=== PATIENT | male | born 1930 | race Caucasian/White ===

== ENCOUNTER → 2018-12-23 | Day surgery (SDC) | payer MEDICARE ==
[2018-12-19 10:39] LABS: BASOPHILS % 0.5 % (0.0-1.0); EOSINOPHILS # (AUTO) 0.1 (0.0-0.4); EOSINOPHILS % 0.8 % (0.0-6.0); HEMOGLOBIN 14.6 g/dL (14.0-18.0); LYMPHOCYTES % 34.8 % (18.0-39.1); MEAN CORPUSCULAR HEMOGLOBIN 32.4 pg (28-32); MEAN CORPUSCULAR HGB CONC 34.8 g/dL (31-35); MEAN CORPUSCULAR VOLUME 93.1 fL (81-99); MONOCYTES # (AUTO) 0.8 (0.2-0.8); NEUTROPHILS # (AUTO) 4.7 (2.1-6.9); NEUTROPHILS % 53.9 % (38.7-80.0); PLATELET COUNT 129 x10e3/uL (140-360); RED BLOOD COUNT 4.51 x10e6/uL (4.3-5.7); RED CELL DISTRIBUTION WIDTH 13.4 % (11.7-14.4)
[~2018-12-23] MED LIST: APRISO0.375 GM PO; B-121000 MCG PO; LIALDA1.2 GM PO; LIDOCAINE HCL 2% LOCAL INJ 5 ML SDV VIAL INJ ONE; LISINOPRIL PO; LISINOPRIL10 MG PO; LISINOPRIL40 MG PO; METOPROLOL TART25 MG PO; METOPROLOL TART50 MG PO; NITROSTAT0.4 MG SL; PLAVIX75 MG PO; PREDNISONE5 MG; PREDNISONE5 MG PO; PROBIOTIC ACID1 EACH PO; PROPOFOL IV EMULSION 10 MG/ML 20 ML VIAL ONE; VITAMIN B-125000 MCG SL; VITAMIN D PO; [UNRECOGNIZED DRUG - OTHER] PO
--- OUTSIDE RECORDS SUMMARY | 2018-12-23 05:58 | XMS REPORT | Summary of Care ---
Author Author [facility] Organization [facility] Address Unknown Phone Unavailable Encounter AISHA Gu(OCTAVIA) [id number] Date(s): 04/12/17 - 04/15/17 [facility] [address] [employer] provided by [facility] [employer] [facility] [place] [address]- Discharge Disposition: Home or Self Care Attending Physician: Tre Moore MD Admitting Physician: Tre Moore MD Referring Physician: Tejas Cristobal MD Vital Signs 1 2 3 Most recent to oldest [Reference Range]: 177.8 cm (04/12/17 1:55 PM) Height 97.5 DegF (04/15/17 12:06 PM) 97.9 DegF (04/15/17 7:21 AM) 97.5 DegF (04/15/17 4:32 AM) Temperature Oral [96.4-99.1 DegF] 103/63 mmHg (04/15/17 12:06 PM) 128/69 mmHg (04/15/17 7:21 AM) 130/70 mmHg (04/15/17 4:32 AM) Blood Pressure [90-140/60-90 mmHg] 20 BRMIN (04/15/17 12:06 PM) 18 BRMIN (04/15/17 7:21 AM) 20 BRMIN (04/15/17 4:32 AM) Respiratory Rate [14-20 BRMIN] 80 bpm (04/15/17 12:06 PM) 96 bpm (04/15/17 7:21 AM) 91 bpm (04/15/17 4:32 AM) Peripheral Pulse Rate [60-100 bpm] 72.2 kg (04/12/17 6:47 PM) 72.727 kg (04/12/17 1:55 PM) Weight 23.01 m2 (04/12/17 1:55 PM) Body Mass Index Problem List Condition Effective Dates Status Health Status Informant Acute ulcerative Resolved colitis(Confirmed) Benign 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 2Data migrated from [employer] on 04/23/15. 3Data migrated from [employer] on 04/23/15. 4Data migrated from [employer] on 04/23/15. 5Data migrated from [employer] on 04/23/15. 6remission since 2004 7Data migrated from [employer] on 04/23/15. Allergies, Adverse Reactions, Alerts Substance Reaction Severity Status sulfa drugs1 Active 1Data migrated from [employer] on 06/23/15. Originally documented as SULFA. Medications acetaminophen 500 mg oral tablet 1,000 mg=2 tab, PO, Q6H, # 60 tab, 0 Refill(s) Start Date: 04/15/17 Stop Date: 04/29/17 Status: Ordered aspirin 325 mg, 1 tab, Route: PO, Drug form: TAB, ONCE, Dosing Weight 72.2, kg, Priority : STAT, Start date: 04/12/17 23:29:00 CDT, Stop date: 04/12/17 23:29:00 CDT Notes: Take with food. Start Date: 04/12/17 Stop Date: 04/13/17 Status: Completed atorvastatin 80 mg, 1 tab, Route: PO, Drug form: TAB, Bedtime, Dosing Weight 72.2, kg, Start date: 04/14/17 21:00:00 CDT, Duration: 30 day, Stop date: 05/13/17 21:00:00 CDT Notes: Same as Lipitor Start Date: 04/14/17 Stop Date: 04/15/17 Status: Discontinued atorvastatin 80 mg oral tablet 80 mg=1 tab, PO, Bedtime, # 30 tab, 0 Refill(s) Start Date: 04/15/17 Status: Ordered Dextrose 50% Syringe 12.5 gm, 25 mL, Route: IVP, Drug Form: INJ, Dosing Weight 72.2, kg, PRN, PRN Abn ormal Lab Result, Start date: 04/12/17 20:47:00 CDT, Duration: 30 day, Stop date : 05/12/17 20:46:00 CDT, For FSBG 40 mg/dL - 60 mg/dL Start Date: 04/12/17 Stop Date: 04/15/17 Status: Discontinued Dextrose 50% Syringe 25 gm, 50 mL, Route: IVP, Drug Form: INJ, Dosing Weight 72.2, kg, PRN, PRN Abnor mal Lab Result, Start date: 04/12/17 20:47:00 CDT, Duration: 30 day, Stop date: 05/12/17 20:46:00 CDT, For FSBG < 40 mg/dL Start Date: 04/12/17 Stop Date: 04/15/17 Status: Discontinued docusate sodium 100 mg oral capsule 100 mg, 1 cap, Route: PO, Drug form: CAP, Q12H, Dosing Weight 72.2, kg, Start da te: 04/13/17 9:00:00 CDT, Duration: 30 day, Stop date: 05/12/17 21:00:00 CDT Notes: (Same as: Colace) (Do Not Crush) Start Date: 04/13/17 Stop Date: 04/15/17 Status: Discontinued docusate sodium 100 mg oral capsule 100 mg=1 cap, PO, Q12H, # 30 cap, 0 Refill(s) Start Date: 04/15/17 Status: Ordered Insulin regular 12 unit, 0.12 mL, Route: SUB-Q, Drug form: SOLN, PRN, Dosing Weight 72.2, kg, UT N Abnormal Lab Result, Start date: 04/12/17 20:47:00 CDT, Duration: 30 day, Stop date: 05/12/17 20:46:00 CDT, For FSBG >=200 mg/dL Notes: (Same as: Humulin R) Roll in palms of hands gently; Do not shake vigorou sly. "single patient use only"(Restricted to patients requiring a dose > 60 units)WASTE: F/P - Black; E - Municipal Trash Bin Stable for 28 days at room temperatureExpires in days from Date Start Date: 04/12/17 Stop Date: 04/15/17 Status: Discontinued Insulin regular 5 unit, 0.05 mL, Route: SUB-Q, Drug form: SOLN, PRN, Dosing Weight 72.2, kg, PRN Abnormal Lab Result, Start date: 04/12/17 20:47:00 CDT, Duration: 30 day, Stop date: 05/12/17 20:46:00 CDT, For FSBG 150 mg/dL - 174 mg/dL Notes: (Same as: Humulin R) Roll in palms of hands gently; Do not shake vigorou sly. "single patient use only"(Restricted to patients requiring a dose > 60 units)WASTE: F/P - Black; E - Municipal Trash Bin Stable for 28 days at room temperatureExpires in days from Date Start Date: 04/12/17 Stop Date: 04/15/17 Status: Discontinued Insulin regular 8 unit, 0.08 mL, Route: SUB-Q, Drug form: SOLN, PRN, Dosing Weight 72.2, kg, PRN Abnormal Lab Result, Start date: 04/12/17 20:47:00 CDT, Duration: 30 day, Stop date: 05/12/17 20:46:00 CDT, For FSBG 175 mg/dL - 199 mg/dL Notes: (Same as: Humulin R) Roll in palms of hands gently; Do not shake vigorou sly. "single patient use only"(Restricted to patients requiring a dose > 60 units)WASTE: F/P - Black; E - Municipal Trash Bin Stable for 28 days at room temperatureExpires in days from Date Start Date: 04/12/17 Stop Date: 04/15/17 Status: Discontinued mesalamine 375 mg, Route: PO, QAM, Dosing Weight 72.2, kg, Start date: 04/13/17 9:00:00 CDT , Duration: 30 day, Stop date: 05/12/17 9:00:00 CDT Start Date: 04/13/17 Stop Date: 04/13/17 Status: Discontinued mesalamine 400 mg, 1 cap, Route: PO, Drug form: DRC, QAM, Start date: 04/13/17 9:00:00 CDT, Duration: 30 day, Stop date: 05/12/17 9:00:00 CDT Notes: (Same as: Delzicol) Start Date: 04/13/17 Stop Date: 04/15/17 Status: Discontinued metoprolol tartrate 25 mg, 1 tab, Route: PO, Drug form: TAB, Q12H, Dosing Weight 72.2, kg, Start stephenie e: 04/12/17 22:16:00 CDT, Duration: 30 day, Stop date: 05/12/17 21:00:00 CDT Notes: (Same as: Lopressor) Start Date: 04/12/17 Stop Date: 04/15/17 Status: Discontinued MiraLax 17 gm, 1 pkt, Route: PO, Drug form: PWDR, Daily, Dosing Weight 72.2, kg, Start d ate: 04/13/17 9:00:00 CDT, Duration: 30 day, Stop date: 05/12/17 9:00:00 CDT Notes: Dissolve in 8 oz of water or juice.(Same as: Miralax) Start Date: 04/13/17 Stop Date: 04/15/17 Status: Discontinued nitroglycerin 0.4 mg, 1 tab, Route: SL, Drug form: TAB, ONCE, Dosing Weight 72.2, kg, Start da te: 04/12/17 22:16:00 CDT, Stop date: 04/12/17 22:16:00 CDT Notes: (Same as:Nitroquick, Nitrostat)"Do Not Crush" Sublingual tablet Start Date: 04/12/17 Stop Date: 04/13/17 Status: Completed oxyCODONE 5 mg oral tablet 5 mg, 1 tab, Route: PO, Drug form: TAB, Q4H, Dosing Weight 72.2, kg, PRN Pain Sc ore 4-6, Start date: 04/12/17 20:46:00 CDT, Duration: 30 day, Stop date: 7 20:45:00 CDT Notes: (Same as: Roxicodone) Start Date: 04/12/17 Stop Date: 04/15/17 Status: Discontinued PHOS-NaK 1 pkt, Route: PO, Drug Form: PDR/REC, Dosing Weight 72.2, kg, ONCE, Start date: 04/15/17 10:12:00 CDT, Stop date: 04/15/17 10:12:00 CDT Notes: (Same as: Phos-NaK) Each 1.5 gm pkt has 250mg phosphorous. Mix w/2.5oz w ater and stir. Start Date: 04/15/17 Stop Date: 04/15/17 Status: Completed Plavix 75 mg, 1 tab, Route: PO, Drug form: TAB, Daily, Dosing Weight 72.2, kg, Start da te: 04/13/17 10:06:00 CDT, Duration: 30 day, Stop date: 05/13/17 9:00:00 CDT Notes: (Same As: Plavix) Start Date: 04/13/17 Stop Date: 04/15/17 Status: Discontinued polyethylene glycol 3350 oral powder for reconstitution 17 gm, PO, Daily, PRN Constipation, # 255 gm, 0 Refill(s) Start Date: 04/15/17 Stop Date: 04/22/17 Status: Ordered senna 8.6 mg oral tablet 17.2 mg, 2 tab, Route: PO, Drug Form: TAB, Dosing Weight 72.2, kg, Bedtime, Star t date: 04/13/17 21:00:00 CDT, Duration: 30 day, Stop date: 05/12/17 21:00:00 CD T Notes: (Same as: Senokot) Start Date: 04/13/17 Stop Date: 04/15/17 Status: Discontinued tramadol 50 mg oral tablet 50 mg, 1 tab, Route: PO, Drug form: TAB, Q6H, Dosing Weight 72.2, kg, PRN Pain S core 1-3, Start date: 04/13/17 0:27:00 CDT, Duration: 30 day, Stop date: 7 0:26:00 CDT Notes: Not to exceed 400mg/day. (Same As: Ultram) Start Date: 04/13/17 Stop Date: 04/15/17 Status: Discontinued tramadol 50 mg oral tablet 50 mg=1 tab, PO, Q6H, PRN Pain Score 1-5, # 24 tab, 0 Refill(s) Start Date: 04/15/17 Stop Date: 04/22/17 Status: Ordered Tylenol 1,000 mg, 2 tab, Route: PO, Drug form: TAB, Q6H, Dosing Weight 72.2, kg, Start d ate: 04/12/17 20:46:00 CDT, Duration: 30 day, Stop date: 05/12/17 18:00:00 CDT Notes: Max acetaminophen 4000 mg/day (4 gm/day). (Same as: Tylenol Extra Streng th) Start Date: 04/12/17 Stop Date: 04/15/17 Status: Discontinued Zofran 4 mg, 1 tab, Route: SL, Drug form: TABDIS, ONCE, Dosing Weight 72.2, kg, Start d ate: 04/15/17 4:42:00 CDT, Stop date: 04/15/17 4:42:00 CDT Notes: (Same as: Zofran ODT) Start Date: 04/15/17 Stop Date: 04/15/17 Status: Completed Zofran 4 mg, 1 tab, Route: PO, Drug form: TAB, ONCE, Dosing Weight 72.2, kg, Start date : 04/13/17 18:41:00 CDT, Stop date: 04/13/17 18:41:00 CDT Notes: (Same as: Zofran) Start Date: 04/13/17 Stop Date: 04/13/17 Status: Completed Zofran ODT 4 mg oral tablet, disintegrating 4 mg=1 tab, PO, Q8H, PRN Vomiting, Dissolve tab under tongue, X 1 day, # 3 tab, 0 Refill(s) Start Date: 04/15/17 Stop Date: 04/16/17 Status: Completed Results BLOOD BANK RESULTS 1 2 3 Most recent to oldest [Reference Range]: B NEG *Unknown* (04/12/17 2:15 PM) ABO/Rh Negative (04/12/17 2:15 PM) Antibody Scrn Product available (04/12/17 2:22 PM) FFP product Product available (04/12/17 2:14 PM) RBC product ELECTROLYTES 1 2 3 Most recent to oldest [Reference Range]: 137 mEq/L (04/15/17 6:18 AM) 138 mEq/L (04/14/17 12:32 AM) 140 mEq/L (04/13/17 4:29 AM) Sodium Lvl [135-145 mEq/L] 4.2 mEq/L (04/15/17 6:18 AM) 4.5 mEq/L (04/14/17 12:32 AM) 4.8 mEq/L (04/13/17 4:29 AM) Potassium Lvl [3.5-5.1 mEq/L] 104 mEq/L (04/15/17 6:18 AM) 106 mEq/L (04/14/17 12:32 AM) 108 mEq/L (04/13/17 4:29 AM) Chloride Lvl [95-109 mEq/L] 22 mEq/L *LOW* (04/15/17 6:18 AM) 23 mEq/L *LOW* (04/14/17 12:32 AM) 21 mEq/L *LOW* (04/13/17 4:29 AM) CO2 [24-32 mEq/L] 15.2 mEq/L (04/15/17 6:18 AM) 13.5 mEq/L (04/14/17 12:32 AM) 15.8 mEq/L (04/13/17 4:29 AM) AGAP [10.0-20.0 mEq/L] CHEM PANEL 1 2 3 Most recent to oldest [Reference Range]: 0.95 mg/dL (04/15/17 6:18 AM) 0.98 mg/dL (04/14/17 12:32 AM) 1.10 mg/dL (04/13/17 4:29 AM) Creatinine Lvl [0.50-1.40 mg/dL] 72 mL/min/1.73m2 1 *NA* (04/15/17 6:18 AM) 70 mL/min/1.73m2 2 *NA* (04/14/17 12:32 AM) 60 mL/min/1.73m2 3 *NA* (04/13/17 4:29 AM) eGFR 18 mg/dL (04/15/17 6:18 AM) 17 mg/dL (04/14/17 12:32 AM) 20 mg/dL (04/13/17 4:29 AM) BUN [7-22 mg/dL] 110 mg/dL *HI* (04/15/17 6:18 AM) 106 mg/dL *HI* (04/14/17 12:32 AM) 91 mg/dL (04/13/17 4:29 AM) Glucose Lvl [70-99 mg/dL] 7.7 mg/dL *LOW* (04/15/17 6:18 AM) 7.9 mg/dL *LOW* (04/14/17 12:32 AM) 8.2 mg/dL *LOW* (04/13/17 4:29 AM) Calcium Lvl [8.5-10.5 mg/dL] 2.8 mg/dL (04/15/17 6:18 AM) 3.3 mg/dL (04/14/17 12:32 AM) 3.9 mg/dL (04/13/17 4:29 AM) Phosphorus [2.5-4.5 mg/dL] 2.3 mg/dL (04/15/17 6:18 AM) 2.3 mg/dL (04/14/17 12:32 AM) 2.4 mg/dL (04/13/17 4:29 AM) Magnesium Lvl [1.8-2.4 mg/dL] 1.6 mMol/L (04/12/17 9:47 PM) Lactic Acid Lvl [0.5-2.2 mMol/L] 1Result Comment: The eGFR is calculated using the CKD-EPI formula. In most young, healthy individuals the eGFR will be >90 mL/min/1.73m2. The eGFR declines with age. An eGFR of 60-89 may be normal in some populations, particularly the elderly, for whom the CKD-EPI formula has not been extensively validated. Use of the eGFR is not recommended in the following populations: Individuals with unstable creatinine concentrations, including patients and those with serious co-morbid conditions. Patients with extremes in muscle mass or diet. The data above are obtained from the National Kidney Disease Education Program ( NKDEP) which additionally recommends that when the eGFR is used in patients with extremes of body mass index for purposes of drug dosing, the eGFR should be mul tiplied by the estimated BMI. 2Result Comment: The eGFR is calculated using the CKD-EPI formula. In most young, healthy individuals the eGFR will be >90 mL/min/1.73m2. The eGFR declines with age. An eGFR of 60-89 may be normal in some populations, particularly the elderly, for whom the CKD-EPI formula has not been extensively validated. Use of the eGFR is not recommended in the following populations: Individuals with unstable creatinine concentrations, including patients and those with serious co-morbid conditions. Patients with extremes in muscle mass or diet. The data above are obtained from the National Kidney Disease Education Program ( NKDEP) which additionally recommends that when the eGFR is used in patients with extremes of body mass index for purposes of drug dosing, the eGFR should be mul tiplied by the estimated BMI. 3Result Comment: The eGFR is calculated using the CKD-EPI formula. In most young, healthy individuals the eGFR will be >90 mL/min/1.73m2. The eGFR declines with age. An eGFR of 60-89 may be normal in some populations, particularly the elderly, for whom the CKD-EPI formula has not been extensively validated. Use of the eGFR is not recommended in the following populations: Individuals with unstable creatinine concentrations, including patients and those with serious co-morbid conditions. Patients with extremes in muscle mass or diet. The data above are obtained from the National Kidney Disease Education Program ( NKDEP) which additionally recommends that when the eGFR is used in patients with extremes of body mass index for purposes of drug dosing, the eGFR should be mul tiplied by the estimated BMI. CARDIAC ENZYMES 1 2 3 Most recent to oldest [Reference Range]: 200 unit/L *HI* (04/12/17 10:04 PM) 253 unit/L *HI* (04/12/17 2:15 PM) Total CK [12-191 unit/L] 34.4 ng/mL *HI* (04/12/17 10:04 PM) 62.5 ng/mL *HI* (04/12/17 2:15 PM) CK MB [0.5-3.6 ng/mL] 17.2 *HI* (04/12/17 10:04 PM) 24.7 *HI* (04/12/17 2:15 PM) CK MB Index [0.0-2.5] 0.611 ng/mL 1 *CRIT* (04/12/17 10:04 PM) Troponin-T [0.000-0.100 ng/mL] 7.41 ng/mL 2 *CRIT* (04/12/17 2:15 PM) Troponin-I [0.00-0.40 ng/mL] 1Result Comment: Critical Result(s) called to Ifeanyi porter at 04/13/2017 00:20 byBP. Read back OK. 2Result Comment: Critical Result(s) called to chandni vivas at 04/12/2017 15:01 by nk. Read back OK. MYOGLOBIN 1 2 3 Most recent to oldest [Reference Range]: 139 ng/mL *HI* (04/12/17 10:04 PM) Myoglobin [25-72 ng/mL] IMMUNOLOGY 1 2 3 Most recent to oldest [Reference Range]: 8.8 mg/dL *LOW* (04/15/17 6:18 AM) Prealbumin [18.0-45.0 mg/dL] 103.0 mg/L *HI* (04/15/17 6:18 AM) CRP [<=2.9 mg/L] HEMATOLOGY 1 2 3 Most recent to oldest [Reference Range]: 8.0 K/CMM (04/15/17 6:18 AM) 6.8 K/CMM (04/14/17 12:32 AM) 6.3 K/CMM (04/13/17 4:29 AM) WBC [3.7-10.4 K/CMM] 3.86 M/CMM *LOW* (04/15/17 6:18 AM) 3.61 M/CMM *LOW* (04/14/17 12:32 AM) 3.25 M/CMM *LOW* (04/13/17 4:29 AM) RBC [4.70-6.10 M/CMM] 11.2 g/dL *LOW* (04/15/17 6:18 AM) 10.5 g/dL *LOW* (04/14/17 12:32 AM) 9.3 g/dL *LOW* (04/13/17 4:29 AM) Hgb [14.0-18.0 g/dL] 34.1 % *LOW* (04/15/17 6:18 AM) 31.5 % *LOW* (04/14/17 12:32 AM) 28.2 % *LOW* (04/13/17 4:29 AM) Hct [42.0-54.0 %] 88.3 fL (04/15/17 6:18 AM) 87.4 fL (04/14/17 12:32 AM) 86.8 fL (04/13/17 4:29 AM) MCV [80.0-94.0 fL] 28.9 pg (04/15/17 6:18 AM) 29.0 pg (04/14/17 12:32 AM) 28.7 pg (04/13/17 4:29 AM) MCH [27.0-31.0 pg] 32.8 g/dL (04/15/17 6:18 AM) 33.1 g/dL (04/14/17 12:32 AM) 33.0 g/dL (04/13/17 4:29 AM) MCHC [32.0-36.0 g/dL] 16.7 % *HI* (04/15/17 6:18 AM) 15.8 % *HI* (04/14/17 12:32 AM) 15.8 % *HI* (04/13/17 4:29 AM) RDW [11.5-14.5 %] 121 K/CMM *LOW* (04/15/17 6:18 AM) 106 K/CMM *LOW* (04/14/17 12:32 AM) 101 K/CMM *LOW* (04/13/17 4:29 AM) Platelet [133-450 K/CMM] 8.6 fL (04/15/17 6:18 AM) 8.9 fL (04/14/17 12:32 AM) 8.9 fL (04/13/17 4:29 AM) MPV [7.4-10.4 fL] 79.6 % *HI* (04/15/17 6:18 AM) 70.5 % (04/14/17 12:32 AM) 65.6 % (04/13/17 4:29 AM) Segs [45.0-75.0 %] 12.2 % *LOW* (04/15/17 6:18 AM) 20.5 % (04/14/17 12:32 AM) 22.3 % (04/13/17 4:29 AM) Lymphocytes [20.0-40.0 %] 7.7 % (04/15/17 6:18 AM) 8.6 % (04/14/17 12:32 AM) 11.2 % (04/13/17 4:29 AM) Monocytes [2.0-12.0 %] 0.2 % (04/15/17 6:18 AM) 0.1 % (04/14/17 12:32 AM) 0.1 % (04/13/17 4:29 AM) Eosinophils [0.0-4.0 %] 0.3 % (04/15/17 6:18 AM) 0.3 % (04/14/17 12:32 AM) 0.8 % (04/13/17 4:29 AM) Basophils [0.0-1.0 %] 6.4 K/CMM (04/15/17 6:18 AM) 4.8 K/CMM (04/14/17 12:32 AM) 4.1 K/CMM (04/13/17 4:29 AM) Segs-Bands # [1.5-8.1 K/CMM] 1.0 K/CMM (04/15/17 6:18 AM) 1.4 K/CMM (04/14/17 12:32 AM) 1.4 K/CMM (04/13/17 4:29 AM) Lymphocytes # [1.0-5.5 K/CMM] 0.6 K/CMM (04/15/17 6:18 AM) 0.6 K/CMM (04/14/17 12:32 AM) 0.7 K/CMM (04/13/17 4:29 AM) Monocytes # [0.0-0.8 K/CMM] 0.1 K/CMM (04/12/17 9:47 PM) Eosinophils # [0.0-0.5 K/CMM] 0.1 K/CMM (04/13/17 4:29 AM) 0.2 K/CMM (04/12/17 9:47 PM) Basophils # [0.0-0.2 K/CMM] 89 seconds (04/12/17 2:15 PM) ACT (TEG) Rapid [86-118 seconds] 0.3 minutes *NA* (04/12/17 2:15 PM) Split Point Rapid 0.4 minutes (04/12/17 2:15 PM) R-time Rapid [0.4-0.7 minutes] 1.2 minutes (04/12/17 2:15 PM) K-time Rapid [0.6-2.3 minutes] 77 degrees (04/12/17 2:15 PM) Angle Rapid [64-80 degrees] 66 mm (04/12/17 2:15 PM) Max Amplitude Rapid [52-71 mm] 9.9 K d/sc (04/12/17 2:15 PM) G-value Rapid [5.0-11.6 K d/sc] 0.0 % (04/12/17 2:15 PM) Estimated % Lysis Rapid [0.0-7.5 %] BACTERIAL - SEROLOGY 1 2 3 Most recent to oldest [Reference Range]: Negative (04/12/17 10:04 PM) MRSA by PCR Immunizations Given and Recorded Vaccine Date Status Refusal Reason Hx influenza vaccine-unspecified1 09/10/13 Given influenza virus vaccine, inactivated2 09/10/13 Given 1Result Comment: done. Migrated from OBS ; Data migrated from [employer] on 12/27/2015. 2Result Comment: fluzone (>3 yrs.) [[id number]]. Migrated from OBS ; Data migrated from [employer] on 12/27/2015. Procedures Procedure Date Related Diagnosis Body Site Appendectomy Cholecystectomy Social History Social History Type Response Smoking Status Former smoker; Ready to change: No; Concerns about tobacco use in household: No; Exposure to Tobacco Smoke None; Cigarette Smoking Last 365 Days No; Reg Smoking Cessation Counseling No Assessment and Plan Extracted from: Title: Cardiology Progress note Author: Hasmukh Thomas MD Date: 04/15/17 Impression and Plan 86-year-old male with PMH hx of UC, CAD s/p PCI with 5 stents to LAD and ramus, hx of Hairy cell leukemia (currently in remission) presented to OSH with chest pain on 04/12/2017. Found to have NSTEMI in setting of acute blood loss from spleenic rupture. He was loaded with aspirin 325 on 04/12, and was taken to IR for splenic embolization. Today is day 3 after his procedure, Hgb stable at this time. Cardiac enzymes trending down. Problem list # Splenic laceration s/p lower lobe embolization # NSTEMI # Anemia from Acute blood loss # CAD s/p 5 PCI # Hairy cell leukemia , in remission Recommendations - Continue Clopidogrel 75 mg daily and atorvastatin 80 mg daily - Due to his recent splenic laceration, would hold on any further anticoagulation - Patient will follow up with outpatient cardiogist (Dr Crsitobal Brooke) phone number [phone]. We have already called his sulfonation equipment operator, and he is willing to see this patient later this week if patient being discharged. We will sign off now. This patient was seen with Dr Gerri Jaramillo (attending). Please page with any questions. Extracted from: Title: Cardiology Consult Note Author: Katarina Reeder MD Date: 04/12/17 Impression and Plan Mr. Bennett is an 86-year-old male with PMH hx of UC, recent clinical diverticulitis, CAD s/p PCI with 5 stents to LAD and ramus, hx of Hairy cell leukemia (currently in remission) presented to OSH with chest pain which started about 3 days ago and woke him up this morning. Found to have NSTEMI in setting of acute blood loss from possible spleenic rupture. Cardiology was consulted for the NSTEMI. #NTSTEMI most likley from Demand ischemia due to acute blood loss from hemorraghic spleen rupture but ACS cannot be r/o at this point. - Previous history of CAD with stents x 5 to alex and LAD - EKG showing NSR without ST elevations, depressions or TWI - TTE at beside showing WMA, TTE showing reduced EF (40-45%) - Hgb dropped from 13 --> 7.3, troponins elevated from 3.3 --> 7.31. CT abd showing acute spleen rupture with extravasation of blood. - Loaded with Plavix, ASA Recommendations - Will hold off heparin drip for now due to acute bleeding in the spleen. - Patient needs to have his hemoglobin stablized with transfusions and agree with the plan to have IR emobolization of the spleen, however, if IR unable to stop bleeding or unsuccessful, Emergent surgery to remove the spleen would still remain as an appropriate option. - Continue trending troponins, EKG Q4H. - Will continue to follow and will consider cardiac work up once patient is more stable. Katarina Reeder Internal Medicine PGY1 Case discussed with faculty. Dr. Corona Attending note: I have seen and examined patient personally. Case discussed with housestaff. Agree with above plans. Time spent with patient > 30 min with half of the time spent in coordinating patient's care. Echo reviewed personally- echo performed at outside hospital yesterday and echo at bedside. LVEF 40-45%, hypokinesis in the anteroseptal wall and anterior wall, normal RV size and function. Impression: 1. NSTEMI- known CAD with prior PTCA to LAD and ramus. Presumed new wall motion abnormalities noted on current echo. This may also be exacerbated by acute blood loss related to splenic laceration 2. Splenic laceration with acute blood loss -Agree with plans for transfusion and IR procedure for splenic embolization. Should IR procedure fail to control bleeding, pt should proceed with surgical intervention for splenectomy as benefits outweigh risks. We will follow along, and when appropriate, will proceed with further cardiac w/u Above discussed with pt, family, surgical team and ER team. Danni Corona MD Extracted from: Title: Trauma H&P Author: Isidro Guerra MD Date: 04/12/17 [facility] Consultation Date: 04/12/2017 Consulting Trauma Surgeon: Dr. Tejas Hernandez Referring Physician: Dr. Uli Isbell Time of Initial Patient Assessment: 14:00 Chief Complaint: "My chest hurts" History of Present Illness: This is an 86-year-old male who presented to the emergency department today at [facility] with complaints of chest pain. He was worked up and found to have non-ST elevated AL with troponin elevation. He presented hypotensive with a systolic blood pressure 102/65, heart rate in the low 100s. He was given a mild fluid bolus of 500 by the ED physician and responded to that with a BP 102/60s, heart rate is 98. The patient also has a past medical history of ulcerative colitis and they are concerned that he had some right lower quadrant pain. This prompted a CT scan. CT scan showed an enlarged spleen with a grade IV splenic injury with hemoperitoneum. Transferre to [facility] for HLOC. Past Medical History: Ulcerative colitis Diverticulitis Hairy cell leukemia in remission since 2004 Past Surgical History: 1974 open cholecystectomy and appendectomy 09/2002 RHC with 2 stents placed 05/2003 RHC with another 2 stents placed RLE angioplasty Home Medications: Plavix 75 mg QAM Metoprolol 25 mg QAM Mesalamine 4 375 mg ; 4 gm/60 mL as needed Nitrostat 0.4 mg Pearls-Probiotic QHS 76432 B12 sublingual Gabapentin 300 mg BID Tyelnol 650 mg TID Levaquin 500 mg day 3 of 10 for diverticulitis flare Allergies: Sulfa drugs Social History: Negative x3. 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 Family History: Non-contributory Review of Systems: Constitutional symptoms: Denies fever, weight loss, night sweats, fatigue HEENT: Denies ear pain, hearing loss, nasal drainage, sore throat, tooth pain, hoarseness, eye redness, visual changes Cardiovascular: Denies murmurs Respiratory: Denies, cough, wheezing, apnea, cyanosis, difficulty breathing Gastrointestinal: Denies decreased feeding/appetite, vomiting, diarrhea, constipation, blood in the stools, abdominal pain Genitourinary: Denies dysuria, hematuria, decreased or absent urine output Musculoskeletal: Denies joint swelling, tenderness, weakness Skin: Denies rashes, dryness, itching Neurological: Denies seizures, loss of consciousness, numbness, tingling, weakness Psychiatric: Denies mood changes, sleep problems Endocrine: Denies changes in body habitus, weight gain Hematologic / lymphatic: Denies bleeding, jaundice, swollen gland Physical Examination: Neuro: AOx3, not agitated Eye: PERRL, EOMI, normal conjunctiva HENT: normocephalic, ears normal, nasal and oral mucosa intact Neck: supple, non-tender Chest: non-labored breathing, symmetric chest rise, no crepitus Cardiac: RRR, no murmurs Abdomen: non-distended, soft, non-tender Pelvis: stable to lateral compression /Perineum: normal genitalia, no wounds to perineum Back: Normal ROM. No swelling. Rectal: Warm, Intact. LUE: 5/5 motor, sensory intact, 2+ radial RUE: 5/5 motor, sensory intact, 2+ radial LLE: 5/5 motor, sensory intact, 2+ femoral, 2+ DP/PT RLE: 5/5 motor, sensory intact, 2+ femoral, 2+ DP/PT Skin: grossly intact Labs: Labs (Last four charted values) WBC 4.7(APRIL 12) Hgb L 8.2(APRIL 12) Hct L 24.5(APRIL 12) Plt L 104(APRIL 12) Radiology: CXR: IMPRESSION: 1. There is mild left basilar atelectasis and possibly minimal left pleural effusion. The lungs are otherwise clear. Note is made of a small calcified granuloma in the right upper lobe. 2. The heart is normal in size. There is no evidence of failure. 3. The regional skeleton is unremarkable. CT Abdomen/Pelvis: IMPRESSION: 1. Splenic injury, grade 4 with hemoperitoneum and hemorrhage extending to the lower pelvis. Blush of contrast consistent with active bleeding. 2. Bilateral lower lobe infiltrates and effusions. 3. Cardiomegaly and coronary artery calcifications. 4. Multiple low-density hepatic lesions presumably cysts. This can be confirmed with a nonemergent ultrasound. 5. Small hiatal hernia. 6. Extensive sigmoid diverticulosis. Assessment and Plan: This is an 86-year-old male who presented to the emergency department today at [facility] [place] with complaints of chest pain. He was worked up and found to have non-ST elevated AL with troponin elevation. He presented hypotensive with a systolic blood pressure 102/65, heart rate in the low 100s. He was given a mild fluid bolus of 500 by the ED physician and responded to that with a BP 102/60s, heart rate is 98. The patient also has a past medical history of ulcerative colitis and they are concerned that he had some right lower quadrant pain. This prompted a CT scan. CT scan showed an enlarged spleen with a grade IV splenic injury with hemoperitoneum. Transferre to [facility] for HLOC. Upon arrival, GCS 15, SBP 100, HR 116. Primary survey intact. Secondary showed no abdominal tenderness. Labs: Hgb 8.2 (13.1 three weeks ago), ACT 89, mA 66, lysis 0.0%. EKG showed no ST elevation, troponins elevated. Cardiology called immediately, performed bedside echo. NSTEMI vs demand ischemia: presumed new wall motion on bedside echo; OK for IR embolization, will continue to follow and continue work-up when appropriate. Injuries and plan as follows: Injuries:Consults/Plans: 1. Grade IV Splenic Laceration with1. To IR for embolization; angio showed lower pole pseudoaneursm and extrav; s/p embolization extravof lower pole with coils and Gelform 2. Hiatal hernia2. F/u outpatient 3. Hepatic hypodensities3. Dedicated U/S vs CT nonemergent Additionally, Cardiology consulted STAT for NSTEMI vs demand ischemia: presumed new wall motion on bedside echo; OK for IR embolization, will continue to follow and continue work-up when appropriate Admit to STICU Tertiary in AM TRAUMA ATTENDING ADDENDUM I have seen and examined patient with provider and concur with their findings and plan as noted in numbered list below. 1. Grade IV Splenic Laceration: To IR for embolization. Admit to STICU for hemodynamic monitoring. 2. Type II NSTEMI vs Demand Ischemia: Cardiology states no indication for catheterization, will continue hemodynamic monitoring. 3. Code Status: Extensive discussion regarding patients wishes were had at the bedside with Dr. Moore, myself, and his family. They agreed to review the status and come up with a plan as we go forward. He is willing to go forward with the embolization and would need to further consider if he were to fail and require operative intervention. DOS 04/12/2017 Tejas Hernandez III, MD MSO [id number]
--- OUTSIDE RECORDS SUMMARY | 2018-12-23 05:58 | XMS REPORT | Continuity of Care Document ---
Author Author [facility] Interface Address Unknown Phone Unavailable Problems Problem Status Onset Date Classification Date Reported Comments Source SPLENIC RUPTURE, NSTEMI Active 04/12/2017 [facility] CHEST PAIN Active 04/12/2017 [facility] NSTEMI Active 04/12/2017 [facility] Discharge Diagnosis: Strep pharyngitis 03/23/2017 03/26/2017 [facility] Discharge Diagnosis: Sinusitis 03/23/2017 03/26/2017 [facility] FEVER Active 03/23/2017 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 [facility] Benign prostatic hyperplasia<sup>1</sup> Active 09/10/2013 Problem 04/18/2017 Data migrated from [employer] on 04/23/15. [facility] Ulcerative colitis<sup>7</sup> Active 09/10/2013 Problem 04/18/2017 Data migrated from [employer] on 04/23/15. [facility] Acute ulcerative colitis Resolved Problem 04/18/2017 [facility] Coronary arteriosclerosis<sup>2</sup> Active Problem 04/18/2017 Data migrated from [employer] on 04/23/15. [facility] Diverticulitis Resolved Problem 04/18/2017 [facility] Essential hypertension<sup>4</sup> Active Problem 04/18/2017 Data migrated from [employer] on 04/23/15. [facility] Hyperlipidemia<sup>5</sup> Active Problem 04/18/2017 Data migrated from [employer] on 04/23/15. 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 OTHER INJURY OF SPLEEN, INITIAL ENCOUNTE Active [facility] NON-ST ELEVATION (NSTEMI) MYOCARDIAL INF Active [facility] Medications Medication Details Route Status Patient Instructions Ordering Provider Order Date Source Ondansetron 4 MG Disintegrating Tablet [Zofran] 4 mg=1 tab, PO, Q8H, PRN Vomiting, Dissolve tab under tongue, X 1 day, # 3 tab, 0 Refill(s) No Longer Active 04/15/2017 [facility] tramadol hydrochloride 50 MG Oral Tablet 50 mg=1 tab, PO, Q6H, PRN Pain Score 1-5, # 24 tab, 0 Refill(s) Active 04/15/2017 [facility] polyethylene glycol 3350 oral powder for reconstitution 17 gm, PO, Daily, PRN Constipation, # 255 gm, 0 Refill(s) Active 04/15/2017 [facility] Docusate Sodium 100 MG Oral Capsule 100 mg=1 cap, PO, Q12H, # 30 cap, 0 Refill(s) Active 04/15/2017 [facility] atorvastatin 80 mg oral tablet 80 mg=1 tab, PO, Bedtime, # 30 tab, 0 Refill(s) Active 04/15/2017 [facility] acetaminophen 500 mg oral tablet 1,000 mg=2 tab, PO, Q6H, # 60 tab, 0 Refill(s) Active 04/15/2017 [facility] PHOS-NaK 1 pkt, Route: PO, Drug Form: PDR/REC, Dosing Weight 72.2, kg, ONCE, Start date: 04/15/17 10:12:00 CDT, Stop date: 04/15/17 10:12:00 CDTNotes: (Same as: Phos-NaK) Each 1.5 gm pkt has 250mg phosphorous. Mix w/2.5oz water and stir. Inactive 04/15/2017 [facility] Zofran 4 mg, 1 tab, Route: SL, Drug form: TABDIS, ONCE, Dosing Weight 72.2, kg, Start date: 04/15/17 4:42:00 CDT, Stop date: 04/15/17 4:42:00 CDTNotes: (Same as: Zofran ODT) Inactive 04/15/2017 [facility] atorvastatin 80 mg, 1 tab, Route: PO, Drug form: TAB, Bedtime, Dosing Weight 72.2, kg, Start date: 04/14/17 21:00:00 CDT, Duration: 30 day, Stop date: 05/13/17 21:00:00 CDTNotes: Same as Lipitor No Longer Active 04/15/2017 [facility] senna 8.6 mg oral tablet 17.2 mg, 2 tab, Route: PO, Drug Form: TAB, Dosing Weight 72.2, kg, Bedtime, Start date: 04/13/17 21:00:00 CDT, Duration: 30 day, Stop date: 05/12/17 21:00:00 CDTNotes: (Same as: Senokot) No Longer Active 04/14/2017 [facility] Zofran 4 mg, 1 tab, Route: PO, Drug form: TAB, ONCE, Dosing Weight 72.2, kg, Start date: 04/13/17 18:41:00 CDT, Stop date: 04/13/17 18:41:00 CDTNotes: (Same as: Zofran) Inactive 04/13/2017 [facility] Plavix 75 mg, 1 tab, Route: PO, Drug form: TAB, Daily, Dosing Weight 72.2, kg, Start date: 04/13/17 10:06:00 CDT, Duration: 30 day, Stop date: 05/13/17 9:00:00 CDTNotes: (Same As: Plavix) No Longer Active 04/13/2017 [facility] Lisinopril 20 mg, 1 tab, Route: PO, Drug form: TAB, Daily, Dosing Weight 72.727, kg, Start date: 04/13/17 9:00:00 CDT, Duration: 30 day, Stop date: 05/12/17 9:00:00 CDTNotes: (Same as: Prinivil, Zestril) No Longer Active 04/13/2017 [facility] Plavix 75 mg, 1 tab, Route: PO, Drug form: TAB, Daily, Dosing Weight 72.727, kg, Start date: 04/13/17 9:00:00 CDT, Duration: 30 day, Stop date: 05/12/17 9:00:00 CDTNotes: (Same As: Plavix) No Longer Active 04/13/2017 [facility] mesalamine 375 mg, Route: PO, QAM, Dosing Weight 72.2, kg, Start date: 04/13/17 9:00:00 CDT, Duration: 30 day, Stop date: 05/12/17 9:00:00 CDT Inactive 04/13/2017 [facility] Miralax 17 gm, 1 pkt, Route: PO, Drug form: PWDR, Daily, Dosing Weight 72.2, kg, Start date: 04/13/17 9:00:00 CDT, Duration: 30 day, Stop date: 05/12/17 9:00:00 CDTNotes: Dissolve in 8 oz of water or juice. (Same as: Miralax) No Longer Active 04/13/2017 [facility] Docusate Sodium 100 MG Oral Capsule 100 mg, 1 cap, Route: PO, Drug form: CAP, Q12H, Dosing Weight 72.2, kg, Start date: 04/13/17 9:00:00 CDT, Duration: 30 day, Stop date: 05/12/17 21:00:00 CDTNotes: (Same as: Colace) (Do Not Crush) No Longer Active 04/13/2017 [facility] tramadol hydrochloride 50 MG Oral Tablet 50 mg, 1 tab, Route: PO, Drug form: TAB, Q6H, Dosing Weight 72.2, kg, PRN Pain Score 1-3, Start date: 04/13/17 0:27:00 CDT, Duration: 30 day, Stop date: 05/13/17 0:26:00 CDTNotes: Not to exceed 400mg/day. (Same As: Ultram) No Longer Active 04/13/2017 [facility] Aspirin 325 mg, 1 tab, Route: PO, Drug form: TAB, ONCE, Dosing Weight 72.2, kg, Priority: STAT, Start date: 04/12/17 23:29:00 CDT, Stop date: 04/12/17 23:29:00 CDTNotes: Take with food. No Longer Active 04/13/2017 [facility] Nitroglycerin 0.3 MG Sublingual Tablet 0.4 mg, 1 tab, Route: SL, Drug form: TAB, ONCE, Dosing Weight 72.2, kg, Start date: 04/12/17 22:16:00 CDT, Stop date: 04/12/17 22:16:00 CDTNotes: (Same as:Nitroquick, Nitrostat) "Do Not Crush" Sublingual tablet No Longer Active 04/13/2017 [facility] metoprolol tartrate 25 mg, 1 tab, Route: PO, Drug form: TAB, Q12H, Dosing Weight 72.2, kg, Start date: 04/12/17 22:16:00 CDT, Duration: 30 day, Stop date: 05/12/17 21:00:00 CDTNotes: (Same as: Lopressor) No Longer Active 04/13/2017 [facility] metoprolol tartrate 25 mg, 1 tab, Route: PO, Drug form: TAB, BID, Dosing Weight 72.727, kg, Start date: 04/12/17 21:00:00 CDT, Duration: 30 day, Stop date: 05/12/17 9:00:00 CDTNotes: (Same as: Lopressor) Inactive 04/13/2017 [facility] gabapentin 300 MG Oral Capsule 300 mg, 1 cap, Route: PO, Drug form: CAP, BID, Dosing Weight 72.727, kg, Start date: 04/12/17 21:00:00 CDT, Duration: 30 day, Stop date: 05/12/17 9:00:00 CDTNotes: (Same as: Neurontin) Inactive 04/13/2017 [facility] Dextrose 50% Syringe 12.5 gm, 25 mL, Route: IVP, Drug Form: INJ, Dosing Weight 72.2, kg, PRN, PRN Abnormal Lab Result, Start date: 04/12/17 20:47:00 CDT, Duration: 30 day, Stop date: 05/12/17 20:46:00 CDT, For FSBG 40 mg/dL - 60 mg/dL No Longer Active 04/13/2017 [facility] Insulin regular 12 unit, 0.12 mL, Route: SUB-Q, Drug form: SOLN, PRN, Dosing Weight 72.2, kg, PRN Abnormal Lab Result, Start date: 04/12/17 20:47:00 CDT, Duration: 30 day, Stop date: 05/12/17 20:46:00 CDT, For FSBG >=200 mg/dLNotes: (Same as: Humulin R) Roll in palms of hands gently; Do not shake vigorously. "single patient use only" (Restricted to patients requiring a dose > 60 units) WASTE: F/P - Black; E - Municipal Trash Bin Stable for 28 days at room temperature Expires in days from Date No Longer Active 04/13/2017 [facility] Oxycodone Hydrochloride 5 MG Oral Tablet 5 mg, 1 tab, Route: PO, Drug form: TAB, Q4H, Dosing Weight 72.2, kg, PRN Pain Score 4-6, Start date: 04/12/17 20:46:00 CDT, Duration: 30 day, Stop date: 05/12/17 20:45:00 CDTNotes: (Same as: Roxicodone) No Longer Active 04/13/2017 [facility] Tylenol 1,000 mg, 2 tab, Route: PO, Drug form: TAB, Q6H, Dosing Weight 72.2, kg, Start date: 04/12/17 20:46:00 CDT, Duration: 30 day, Stop date: 05/12/17 18:00:00 CDTNotes: Max acetaminophen 4000 mg/day (4 gm/day). (Same as: Tylenol Extra Strength) No Longer Active 04/13/2017 [facility] Docusate 100 mg, 1 cap, Route: PO, Drug form: CAP, BID, Dosing Weight 72.727, kg, Start date: 04/12/17 17:00:00 CDT, Duration: 30 day, Stop date: 05/12/17 9:00:00 CDTNotes: (Same as: Colace) (Do Not Crush) Inactive 04/12/2017 [facility] RN please bring home med MESALAMINE to Pharmacy for label RN please bring home med MESALAMINE to Pharmacy for label, 1, Drug form: MISC, Route: MISC, TID, 04/12/17 15:00:00 CDT, Duration: 30 day, Stop date: 05/12/17 9:00:00 CDT Inactive 04/12/2017 [facility] Sodium Chloride 0.154 MEQ/ML Injectable Solution 500 mL, 500 ml/hr, Infuse Over: 1 hr, Route: IV, 500, Drug form: INJ, ONCE, Priority: STAT, Dosing Weight 72.727 kg, Start date: 04/12/17 11:08:00 CDT, Duration: 1 doses or times, Stop date: 04/12/17 11:08:00 CDT Inactive 04/12/2017 [facility] Nitroglycerin 0.4 MG Sublingual Tablet [Nitrostat] 0.4 mg, 1 tab, Route: SL, Drug form: TAB, Q5Min, Dosing Weight 72.727, kg, PRN Chest Pain, Start date: 04/12/17 10:50:00 CDT, Duration: 30 day, Stop date: 05/12/17 10:49:00 CDTNotes: (Same as:Nitroquick, Nitrostat) "Do Not Crush" Sublingual tablet Inactive 04/12/2017 [facility] Morphine 2 mg, 1 mL, Route: IVP, Drug form: INJ, Q2H, Dosing Weight 72.727, kg, PRN Chest Pain, Start date: 04/12/17 10:46:00 CDT, Duration: 30 day, Stop date: 05/12/17 10:45:00 CDTNotes: (Same as:MORPhine Sulfate) Inactive 04/12/2017 [facility] Hydralazine 10 mg, 0.5 mL, Route: IV, Drug form: INJ, RQ4H, Dosing Weight 72.727, kg, PRN Hypertension, Start date: 04/12/17 10:46:00 CDT, Duration: 30 day, Stop date: 05/12/17 10:45:00 CDTNotes: (Same as: Apresoline) Push over 5 minutes Inactive 04/12/2017 [facility] Sodium Chloride 0.154 MEQ/ML Injectable Solution 500 mL, 500 ml/hr, Infuse Over: 1 hr, Route: IV, 500, Drug form: INJ, ONCE, Priority: STAT, Dosing Weight 72.727 kg, Start date: 04/12/17 10:42:00 CDT, Duration: 1 doses or times, Stop date: 04/12/17 10:42:00 CDT Inactive 04/12/2017 [facility] Sodium Chloride 0.154 MEQ/ML Injectable Solution 500 mL, 500 ml/hr, Infuse Over: 1 hr, Route: IV, 500, Drug form: INJ, ONCE, Priority: STAT, Dosing Weight 72.727 kg, Start date: 04/12/17 10:33:00 CDT, Duration: 1 doses or times, Stop date: 04/12/17 10:33:00 CDT Inactive 04/12/2017 [facility] Zofran 4 mg, 2 mL, Route: IVP, Drug form: INJ, ONCE, Dosing Weight 72.727, kg, Start date: 04/12/17 10:33:00 CDT, Stop date: 04/12/17 10:33:00 CDTNotes: (Same as: Zofran) MEDICATION WASTE Product Size: 4 mg Product Wasted: ___ mg Inactive 04/12/2017 [facility] Morphine 4 mg, 1 mL, Route: IVP, Drug form: SOLN, ONCE, Dosing Weight 72.727, kg, Start date: 04/12/17 10:33:00 CDT, Stop date: 04/12/17 10:33:00 CDTNotes: (Same as:MORPhine Sulfate) Inactive 04/12/2017 [facility] Heparin 60 unit/kg Bolus (Heparin Dosing Weight) Route: IVP, PRN, 4,400 unit, 4.4 mL, Drug form: INJ, PRN, Heparin Protocol, Start date: 04/12/17 10:22:00 CDT Stop date: 05/12/17 10:21:00 CDT, 30 day Inactive 04/12/2017 [facility] Heparin - one time bolus for ACS 4,000 unit, 4 mL, Route: IVP, Drug form: INJ, ONCE, Dosing Weight 72.727, kg, Priority: STAT, Start date: 04/12/17 10:22:00 CDT, Stop date: 04/12/17 10:22:00 CDT Inactive 04/12/2017 [facility] Heparin 30 unit/kg Bolus (Heparin Dosing Weight) Route: IVP, PRN, 2,200 unit, 2.2 mL, Drug form: INJ, PRN, Heparin Protocol, Start date: 04/12/17 10:22:00 CDT Stop date: 05/12/17 10:21:00 CDT, 30 day Inactive 04/12/2017 [facility] heparin additive 25,000 unit [12 unit/kg/hr] + Premix Diluent Dextrose 5% 500 mL 500 mL, Rate: 17.46 ml/hr, Infuse over: 28.6 hr, Route: IV, Dosing Weight 72.73 kg, Total Volume: 500 mL, Start date: 04/12/17 10:22:00 CDT, Duration: 30 day, Stop date: 05/12/17 10:21:00 CDT Inactive 04/12/2017 [facility] Nitroglycerin 0.4 MG Sublingual Tablet [Nitrostat] 0.4 mg=1 tab, SL, Q5Min, 0 Refill(s) On Hold 04/12/2017 [facility] gabapentin 300 MG Oral Capsule 300 mg=1 cap, PO, BID, 0 Refill(s) On Hold 04/12/2017 [facility] mesalamine 375 mg, PO, QAM, 0 Refill(s) On Hold 04/12/2017 [facility] metoprolol tartrate 25 mg, PO, BID, 0 Refill(s) On Hold 04/12/2017 [facility] Ondansetron 4 mg, 2 mL, Route: IVP, Drug form: INJ, Q6H, Dosing Weight 72.727, kg, PRN Nausea & Vomiting, Start date: 04/12/17 10:15:00 CDT, Duration: 30 day, Stop date: 05/12/17 10:14:00 CDTNotes: (Same as: Duncan) MEDICATION WASTE Product Size: 4 mg Product Wasted: ___ mg Inactive 04/12/2017 [facility] Morphine 2 mg, 1 mL, Route: IVP, Drug form: INJ, Q4H, Dosing Weight 72.727, kg, PRN Pain Score 7-10, Start date: 04/12/17 10:15:00 CDT, Duration: 30 day, Stop date: 05/12/17 10:14:00 CDTNotes: (Same as:MORPhine Sulfate) Inactive 04/12/2017 [facility] Acetaminophen 650 mg, 2 tab, Route: PO, Drug form: TAB, Q6H, Dosing Weight 72.727, kg, PRN Pain 1-3/Temp > 100.4 F, Start date: 04/12/17 10:15:00 CDT, Duration: 30 day, Stop date: 05/12/17 10:14:00 CDTNotes: Do not exceed 4 gm/day. (Same as: Tylenol) Inactive 04/12/2017 [facility] Acetaminophen 325 MG / Hydrocodone Bitartrate 5 MG Oral Tablet 1 tab, Route: PO, Drug Form: TAB, Dosing Weight 72.727, kg, Q6H, PRN Pain Score 4-6, Start date: 04/12/17 10:15:00 CDT, Duration: 30 day, Stop date: 05/12/17 10:14:00 CDTNotes: (Same as: [place] 325/5) Do not exceed 4gm/day of acetaminophen. Inactive 04/12/2017 [facility] clopidogrel 75 MG Oral Tablet [Plavix] 75 mg=1 tab, PO, Daily, 0 Refill(s) On Hold 04/12/2017 [facility] lisinopril 20 mg oral tablet 20 mg=1 tab, PO, Daily, 0 Refill(s) On Hold 04/12/2017 [facility] Amoxicillin 875 MG / Clavulanate 125 MG Oral Tablet [Augmentin 875-mg] 875 mg=1 tab, PO, Q12H, X 10 day, # 20 tab, 0 Refill(s) Active 03/23/2017 [facility] Saline Flush 0.9% 10 mL, Route: IVP, Drug Form: INJ, Dosing Weight 72.727, kg, PRN, PRN Line Flush, Start date: 03/23/17 11:16:00 CDT, Duration: 30 day, Stop date: 04/22/17 11:15:00 CDTNotes: preservative free. Inactive 03/23/2017 [facility] Sodium Chloride 0.154 MEQ/ML Injectable Solution 1,500 mL, 2,000 ml/hr, Route: IV, ONCE, Priority: STAT, Dosing Weight 72.727 kg, Start date: 03/23/17 11:16:00 CDT, Duration: 1 doses or times, Stop date: 03/23/17 11:16:00 CDT Inactive 03/23/2017 [facility] Allergies, Adverse Reactions, Alerts Substance Category Reaction Severity Reaction type Status Date Reported Comments Source sulfa drugs<sup>1</sup> Assertion Drug allergy Active Data migrated from [employer] on 06/23/15. Originally documented as SULFA. [facility] Immunizations Immunization Date Given Site Status Last Updated Comments Source Hx influenza vaccine-unspecified<sup>1</sup> 09/10/2013 completed GE Result Comment: done. Migrated from OBS ; Data migrated from [employer] on 12/27/2015. [facility] influenza virus vaccine, inactivated<sup>2</sup> 09/10/2013 Left Deltoid completed GE Result Comment: fluzone (>3 yrs.) [[id number]]. Migrated from OBS ; Data migrated from [employer] on 12/27/2015. [facility] Results Order Name Results Value Reference Range Date Interpretation Comments Source CHEM PANEL Phosphorus 2.8 mg/dL 2.5 - 4.5 04/15/2017 [facility] CHEM PANEL eGFR 72 mL/min/1.73m2 04/15/2017 Result Comment: The eGFR is calculated using the [...] from the National Kidney Disease Education Program (NKDEP) which additionally recommends that when the eGFR is used in patients with extremes of body mass index for purposes of drug dosing, the eGFR should be multiplied by the estimated BMI. [facility] CHEM PANEL BUN 18 mg/dL 7 - 22 04/15/2017 [facility] CHEM PANEL Glucose Lvl 110 mg/dL 70 - 99 04/15/2017 [facility] CHEM PANEL Calcium Lvl 7.7 mg/dL 8.5 - 10.5 04/15/2017 [facility] CHEM PANEL CO2 22 meq/L 24 - 32 04/15/2017 [facility] CHEM PANEL Chloride Lvl 104 meq/L 95 - 109 04/15/2017 [facility] CHEM PANEL Sodium Lvl 137 meq/L 135 - 145 04/15/2017 [facility] CHEM PANEL Creatinine Lvl 0.95 mg/dL 0.50 - 1.40 04/15/2017 [facility] CHEM PANEL Potassium Lvl 4.2 meq/L 3.5 - 5.1 04/15/2017 [facility] CHEM PANEL AGAP 15.2 meq/L 10.0 - 20.0 04/15/2017 [facility] CHEM PANEL Magnesium Lvl 2.3 mg/dL 1.8 - 2.4 04/15/2017 [facility] HEMATOLOGY Monocytes # 0.6 K/CMM 0.0 - 0.8 04/15/2017 [facility] HEMATOLOGY Monocytes 7.7 % 2.0 - 12.0 04/15/2017 [facility] HEMATOLOGY Eosinophils 0.2 % 0.0 - 4.0 04/15/2017 [facility] HEMATOLOGY Segs-Bands # 6.4 K/CMM 1.5 - 8.1 04/15/2017 [facility] HEMATOLOGY Basophils 0.3 % 0.0 - 1.0 04/15/2017 [facility] HEMATOLOGY Lymphocytes # 1.0 K/CMM 1.0 - 5.5 04/15/2017 [facility] HEMATOLOGY Segs 79.6 % 45.0 - 75.0 04/15/2017 [facility] HEMATOLOGY Lymphocytes 12.2 % 20.0 - 40.0 04/15/2017 [facility] HEMATOLOGY MCHC 32.8 g/dL 32.0 - 36.0 04/15/2017 [facility] HEMATOLOGY RDW 16.7 % 11.5 - 14.5 04/15/2017 [facility] HEMATOLOGY MCH 28.9 pg 27.0 - 31.0 04/15/2017 [facility] HEMATOLOGY Platelet 121 K/CMM 133 - 450 04/15/2017 [facility] HEMATOLOGY MPV 8.6 fL 7.4 - 10.4 04/15/2017 [facility] HEMATOLOGY RBC 3.86 M/CMM 4.70 - 6.10 04/15/2017 [facility] HEMATOLOGY Hgb 11.2 g/dL 14.0 - 18.0 04/15/2017 [facility] HEMATOLOGY WBC 8.0 K/CMM 3.7 - 10.4 04/15/2017 [facility] HEMATOLOGY Hct 34.1 % 42.0 - 54.0 04/15/2017 [facility] HEMATOLOGY MCV 88.3 fL 80.0 - 94.0 04/15/2017 [facility] IMMUNOLOGY Prealbumin 8.8 mg/dL 18.0 - 45.0 04/15/2017 [facility] IMMUNOLOGY C-REACTIVE PROTEIN 103.0 mg/L <=2.9 mg/L 04/15/2017 [facility] CHEM PANEL Phosphorus 3.3 mg/dL 2.5 - 4.5 04/14/2017 [facility] CHEM PANEL eGFR 70 mL/min/1.73m2 04/14/2017 Result Comment: The eGFR is calculated using the [...] from the National Kidney Disease Education Program (NKDEP) which additionally recommends that when the eGFR is used in patients with extremes of body mass index for purposes of drug dosing, the eGFR should be multiplied by the estimated BMI. [facility] CHEM PANEL BUN 17 mg/dL 7 - 22 04/14/2017 [facility] CHEM PANEL Glucose Lvl 106 mg/dL 70 - 99 04/14/2017 [facility] CHEM PANEL Potassium Lvl 4.5 meq/L 3.5 - 5.1 04/14/2017 [facility] CHEM PANEL Sodium Lvl 138 meq/L 135 - 145 04/14/2017 [facility] CHEM PANEL Creatinine Lvl 0.98 mg/dL 0.50 - 1.40 04/14/2017 [facility] CHEM PANEL Chloride Lvl 106 meq/L 95 - 109 04/14/2017 [facility] CHEM PANEL Calcium Lvl 7.9 mg/dL 8.5 - 10.5 04/14/2017 [facility] CHEM PANEL CO2 23 meq/L 24 - 32 04/14/2017 [facility] CHEM PANEL AGAP 13.5 meq/L 10.0 - 20.0 04/14/2017 [facility] CHEM PANEL Magnesium Lvl 2.3 mg/dL 1.8 - 2.4 04/14/2017 [facility] HEMATOLOGY Lymphocytes 20.5 % 20.0 - 40.0 04/14/2017 [facility] HEMATOLOGY Monocytes 8.6 % 2.0 - 12.0 04/14/2017 [facility] HEMATOLOGY Segs 70.5 % 45.0 - 75.0 04/14/2017 [facility] HEMATOLOGY Eosinophils 0.1 % 0.0 - 4.0 04/14/2017 [facility] HEMATOLOGY Lymphocytes # 1.4 K/CMM 1.0 - 5.5 04/14/2017 [facility] HEMATOLOGY Monocytes # 0.6 K/CMM 0.0 - 0.8 04/14/2017 [facility] HEMATOLOGY Segs-Bands # 4.8 K/CMM 1.5 - 8.1 04/14/2017 [facility] HEMATOLOGY Basophils 0.3 % 0.0 - 1.0 04/14/2017 [facility] HEMATOLOGY MPV 8.9 fL 7.4 - 10.4 04/14/2017 [facility] HEMATOLOGY RDW 15.8 % 11.5 - 14.5 04/14/2017 [facility] HEMATOLOGY MCV 87.4 fL 80.0 - 94.0 04/14/2017 [facility] HEMATOLOGY Platelet 106 K/CMM 133 - 450 04/14/2017 [facility] HEMATOLOGY MCHC 33.1 g/dL 32.0 - 36.0 04/14/2017 [facility] HEMATOLOGY MCH 29.0 pg 27.0 - 31.0 04/14/2017 [facility] [facility] HEMATOLOGY RBC 3.61 M/CMM 4.70 - 6.10 04/14/2017 [facility] HEMATOLOGY Hct 31.5 % 42.0 - 54.0 04/14/2017 [facility] HEMATOLOGY Hgb 10.5 g/dL 14.0 - 18.0 04/14/2017 [facility] HEMATOLOGY WBC 6.8 K/CMM 3.7 - 10.4 04/14/2017 [facility] CHEM PANEL Magnesium Lvl 2.4 mg/dL 1.8 - 2.4 04/13/2017 [facility] CHEM PANEL eGFR 60 mL/min/1.73m2 04/13/2017 Result Comment: The eGFR is calculated using the [...] from the National Kidney Disease Education Program (NKDEP) which additionally recommends that when the eGFR is used in patients with extremes of body mass index for purposes of drug dosing, the eGFR should be multiplied by the estimated BMI. [facility] CHEM PANEL Chloride Lvl 108 meq/L 95 - 109 04/13/2017 [facility] CHEM PANEL CO2 21 meq/L 24 - 32 04/13/2017 [facility] CHEM PANEL Calcium Lvl 8.2 mg/dL 8.5 - 10.5 04/13/2017 [facility] CHEM PANEL Glucose Lvl 91 mg/dL 70 - 99 04/13/2017 [facility] CHEM PANEL BUN 20 mg/dL 7 - 22 04/13/2017 [facility] CHEM PANEL Creatinine Lvl 1.10 mg/dL 0.50 - 1.40 04/13/2017 [facility] CHEM PANEL Sodium Lvl 140 meq/L 135 - 145 04/13/2017 [facility] CHEM PANEL Potassium Lvl 4.8 meq/L 3.5 - 5.1 04/13/2017 [facility] CHEM PANEL AGAP 15.8 meq/L 10.0 - 20.0 04/13/2017 [facility] CHEM PANEL Phosphorus 3.9 mg/dL 2.5 - 4.5 04/13/2017 [facility] HEMATOLOGY MCHC 33.0 g/dL 32.0 - 36.0 04/13/2017 [facility] HEMATOLOGY RBC 3.25 M/CMM 4.70 - 6.10 04/13/2017 [facility] HEMATOLOGY RDW 15.8 % 11.5 - 14.5 04/13/2017 [facility] HEMATOLOGY MPV 8.9 fL 7.4 - 10.4 04/13/2017 [facility] HEMATOLOGY Platelet 101 K/CMM 133 - 450 04/13/2017 [facility] HEMATOLOGY MCV 86.8 fL 80.0 - 94.0 04/13/2017 [facility] HEMATOLOGY MCH 28.7 pg 27.0 - 31.0 04/13/2017 [facility] HEMATOLOGY Hgb 9.3 g/dL 14.0 - 18.0 04/13/2017 [facility] HEMATOLOGY Hct 28.2 % 42.0 - 54.0 04/13/2017 [facility] HEMATOLOGY WBC 6.3 K/CMM 3.7 - 10.4 04/13/2017 [facility] HEMATOLOGY Basophils 0.8 % 0.0 - 1.0 04/13/2017 [facility] HEMATOLOGY Lymphocytes 22.3 % 20.0 - 40.0 04/13/2017 [facility] HEMATOLOGY Lymphocytes # 1.4 K/CMM 1.0 - 5.5 04/13/2017 [facility] HEMATOLOGY Monocytes # 0.7 K/CMM 0.0 - 0.8 04/13/2017 [facility] HEMATOLOGY Segs-Bands # 4.1 K/CMM 1.5 - 8.1 04/13/2017 [facility] HEMATOLOGY Monocytes 11.2 % 2.0 - 12.0 04/13/2017 [facility] HEMATOLOGY Eosinophils 0.1 % 0.0 - 4.0 04/13/2017 [facility] HEMATOLOGY Basophils # 0.1 K/CMM 0.0 - 0.2 04/13/2017 [facility] HEMATOLOGY Segs 65.6 % 45.0 - 75.0 04/13/2017 [facility] BACTERIAL - SEROLOGY MRSA by PCR Negative (04/12/17 10:04 PM) 04/13/2017 [facility] CARDIAC ENZYMES Troponin-T 0.611 ng/mL 0.000 - 0.100 04/13/2017 Result Comment: Critical Result(s) called to Ifeanyi porter at 04/13/2017 00:20 byBP. Read back OK. [facility] CARDIAC ENZYMES Total CK 200 unit/L 12 - 191 04/13/2017 [facility] CARDIAC ENZYMES CK MB Index 17.2 0.0 - 2.5 04/13/2017 [facility] CARDIAC ENZYMES CK MB 34.4 ng/mL 0.5 - 3.6 04/13/2017 [facility] MYOGLOBIN Myoglobin 139 ng/mL 25 - 72 04/13/2017 [facility] CHEM PANEL Lactic Acid Lvl 1.6 mMol/L 0.5 - 2.2 04/13/2017 [facility] HEMATOLOGY Basophils # 0.2 K/CMM 0.0 - 0.2 04/13/2017 [facility] HEMATOLOGY Eosinophils # 0.1 K/CMM 0.0 - 0.5 04/13/2017 [facility] Angiogram visceral artery initial VR Angiogram visceral artery initial VR STUDY: VIR splenic angiogram and embolization DATE: 04/12/2017 6:16 PM CDT INDICATION(S): 86-year-old gentleman with 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 Request is for angiogram and embolization. PROCEDURE(S) PERFORMED: 1. Celiac axis angiogram 2. Splenic artery angiogram 3. Successful selective lower pole splenic artery embolization using Gelfoam and coils. 4. Successful deployment of a 6-Cameroonian Angio-Seal groin closure device. UNIVERSITY CONTROLLER: Dr. Sawyer MEAT COUNTER WORKER(S): None CONSENT: Written consent obtained after discussing the indications, procedure, potential benefits, alternatives and risks SEDATION/PAIN CONTROL: Moderate conscious sedation was administered by a dedicated nurse under my supervision. There was continuous monitoring of BP, pulse and oxygen saturation. Sedation time 30 minutes. PROCEDURE IN DETAIL AND FINDINGS: The patient was brought into interventional suite and placed supine. Timeout was performed. Both groins are prepped and draped in the usual sterile fashion. Lidocaine 1% used as local anesthetic. Using real-time ultrasound guidance right common femoral artery was accessed with a micropuncture set. Access was upsized in the standard fashion to accept a 5-Cameroonian sheath and subsequently a Bentson wire was advanced into the upper abdominal aorta. Next a C1 Cobra catheter was advanced into the abdominal aorta and used to selectively cannulate the celiac axis. Celiac axis angiogram was then performed which demonstrated a large spleen. Attempts were then made to advance a hi flow renegade with a fathom wire in a coaxial fashion unfortunately this C1 Cobra catheter was unstable. The C1 Cobra catheter was then exchanged for a SOS II catheter. The SOS II catheter engaged the celiac axis and subsequently a high Yao renegade microcatheter and fathom wire were then advanced into the splenic artery and used to selectively cannulate the lower pole. 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 At this point a decision was therefore taken to perform embolization of the vessels supplying the pseudoaneurysm. Embolization was performed using Gelfoam pledgets and possible coils. Post embolization splenic angiogram demonstrated no further pseudoaneurysm filling and preservation over 80% of the splenic perfusion. All hardware was then removed and right groin hemostasis was achieved by successful deployment of a 6-Cameroonian Angio-Seal groin closure device. The patient tolerated the procedure well and was transferred to the shock trauma unit. COMPLICATIONS: None ESTIMATED BLOOD LOSS: None FLUOROSCOPIC TIME: 17.2 minutes RADIATION DOSE: 259 mGy CONTRAST VOLUME: 136 mL IMPRESSION: Splenic artery angiogram demonstrating a lower pole pseudoaneurysm and area of extra-axial extravasation. Successful embolization using Gelfoam and coils. PLAN/FOLLOW UP: No interventional radiology follow up required. The patient will be followed up by the trauma service. Dr. Sawyer, IR Attending, was present for the procedure. 04/12/2017 - - Read by: Edi Sawyer Dictated Date/time: 04/16/17 21:50 Electronically Signed by: Edi Sawyer 04/16/17 22:02 FINAL REPORT [facility] BLOOD BANK RESULTS FFP product Product available (04/12/17 2:22 PM) 04/12/2017 [facility] BLOOD BANK RESULTS Antibody Scrn Negative (04/12/17 2:15 PM) 04/12/2017 [facility] BLOOD BANK RESULTS ABO/Rh B NEG 04/12/2017 [facility] CARDIAC ENZYMES Total CK 253 unit/L 12 - 191 04/12/2017 [facility] CARDIAC ENZYMES CK MB 62.5 ng/mL 0.5 - 3.6 04/12/2017 [facility] CARDIAC ENZYMES CK MB Index 24.7 0.0 - 2.5 04/12/2017 [facility] CARDIAC ENZYMES Troponin-I 7.41 ng/mL 0.00 - 0.40 04/12/2017 Result Comment: Critical Result(s) called to chandni vivas at 04/12/2017 15:01 by nk. Read back OK. [facility] HEMATOLOGY Estimated % Lysis Rapid 0.0 % 0.0 - 7.5 04/12/2017 [facility] HEMATOLOGY ACT (TEG) Rapid 89 s 86 - 118 04/12/2017 [facility] HEMATOLOGY Split Point Rapid 0.3 min 04/12/2017 [facility] HEMATOLOGY R-time Rapid 0.4 min 0.4 - 0.7 04/12/2017 [facility] HEMATOLOGY Angle Rapid 77 degrees 64 - 80 04/12/2017 [facility] HEMATOLOGY K-time Rapid 1.2 min 0.6 - 2.3 04/12/2017 [facility] HEMATOLOGY Max Amplitude Rapid 66 mm 52 - 71 04/12/2017 [facility] HEMATOLOGY G-value Rapid 9.9 K d/sc 5.0 - 11.6 04/12/2017 [facility] BLOOD BANK RESULTS RBC product Product available (04/12/17 2:14 PM) 04/12/2017 [facility] BLOOD BANK RESULTS RBC product Product available 1 (04/12/17 12:22 PM) 04/12/2017 Result Comment: 04/12/2017 14:10 [id number] notified [facility] blood is ready for picker tender [facility] CARDIAC ENZYMES BNP 142 pg/mL <=100 pg/mL 04/12/2017 [facility] CHEM PANEL Amylase Lvl 37 unit/L 25 - 115 04/12/2017 [facility] CHEM PANEL Vitamin D, 25-OH, Total 20.5 ng/mL 30.0 - 100.0 04/12/2017 [facility] CHEM PANEL Phosphorus 3.6 mg/dL 2.5 - 4.5 04/12/2017 [facility] CHEM PANEL Magnesium Lvl 2.0 mg/dL 1.8 - 2.4 04/12/2017 [facility] CHEM PANEL Uric Acid 8.9 mg/dL 3.8 - 8.0 04/12/2017 [facility] HEMATOLOGY MCV 86.3 fL 80.0 - 94.0 04/12/2017 [facility] HEMATOLOGY Hct 21.9 % 42.0 - 54.0 04/12/2017 [facility] HEMATOLOGY RDW 16.3 % 11.5 - 14.5 04/12/2017 [facility] HEMATOLOGY MCHC 33.4 g/dL 32.0 - 36.0 04/12/2017 [facility] MCH 28.8 pg 27.0 - 31.0 04/12/2017 [facility] HEMATOLOGY Hgb 7.3 g/dL 14.0 - 18.0 04/12/2017 [facility] HEMATOLOGY RBC 2.53 M/CMM 4.70 - 6.10 04/12/2017 [facility] HEMATOLOGY WBC 4.5 K/CMM 3.7 - 10.4 04/12/2017 [facility] HEMATOLOGY MPV 8.9 fL 7.4 - 10.4 04/12/2017 [facility] HEMATOLOGY Platelet 94 K/CMM 133 - 450 04/12/2017 [facility] HEMATOLOGY Sed Rate 44 mm/h 0 - 15 04/12/2017 [facility] HEMATOLOGY Monocytes # 0.6 K/CMM 0.0 - 0.8 04/12/2017 [facility] HEMATOLOGY Segs-Bands # 2.9 K/CMM 1.5 - 8.1 04/12/2017 [facility] HEMATOLOGY Lymphocytes # 1.1 K/CMM 1.0 - 5.5 04/12/2017 [facility] HEMATOLOGY Basophils 0.3 % 0.0 - 1.0 04/12/2017 [facility] Monocytes 12.5 % 2.0 - 12.0 04/12/2017 [facility] HEMATOLOGY Segs 64.0 % 45.0 - 75.0 04/12/2017 [facility] Lymphocytes 23.2 % 20.0 - 40.0 04/12/2017 [facility] IMMUNOLOGY Prealbumin 10.4 mg/dL 18.0 - 45.0 04/12/2017 [facility] IMMUNOLOGY Homocyst Tot 5.3 umol/L 3.7 - 13.9 04/12/2017 [facility] LIPIDS VLDL 27 04/12/2017 [facility] LIPIDS LDL (Calculated) 61 mg/dL <=99 mg/dL 04/12/2017 [facility] SPECIAL CHEMISTRY Hgb A1C 5.3 % <=5.6 % 04/12/2017 [facility] BLOOD BANK RESULTS ABO/Rh B NEG 04/12/2017 [facility] BLOOD BANK RESULTS Antibody Scrn Negative (04/12/17 11:57 AM) 04/12/2017 [facility] URINE AND STOOL Occult Bld Stl Negative (04/12/17 10:08 AM) Negative 04/12/2017 [facility] CARDIAC ENZYMES CK MB 27.1 ng/mL 0.5 - 3.6 04/12/2017 [facility] CARDIAC ENZYMES Total CK 147 unit/L 12 - 191 04/12/2017 [facility] CARDIAC ENZYMES CK MB Index 18.4 0.0 - 2.5 04/12/2017 [facility] CARDIAC ENZYMES Troponin-I 3.30 ng/mL 0.00 - 0.40 04/12/2017 Result Comment: Critical Result(s) called to Tisha Ruffin at 04/12/2017 09:21 by jaguar. Read back OK. [facility] CHEM PANEL eGFR 45 mL/min/1.73m2 04/12/2017 Result Comment: The eGFR is calculated using the [...] from the National Kidney Disease Education Program (NKDEP) which additionally recommends that when the eGFR is used in patients with extremes of body mass index for purposes of drug dosing, the eGFR should be multiplied by the estimated BMI. [facility] CHEM PANEL A/G Ratio 0.8 0.7 - 1.6 04/12/2017 [facility] CHEM PANEL AGAP 15.9 meq/L 10.0 - 20.0 04/12/2017 [facility] CHEM PANEL Bili Total 0.6 mg/dL 0.2 - 1.3 04/12/2017 [facility] CHEM PANEL Alk Phos 63 unit/L 39 - 136 04/12/2017 [facility] CHEM PANEL Globulin 3.1 g/dL 2.7 - 4.2 04/12/2017 [facility] CHEM PANEL B/C Ratio 18 6 - 25 04/12/2017 [facility] CHEM PANEL AST 44 unit/L 0 - 37 04/12/2017 [facility] CHEM PANEL ALT 16 unit/L 0 - 65 04/12/2017 [facility] CHEM PANEL Albumin Lvl 2.5 g/dL 3.5 - 5.0 04/12/2017 [facility] CHEM PANEL Total Protein 5.6 g/dL 6.4 - 8.4 04/12/2017 [facility] CHEM PANEL CO2 24 meq/L 24 - 32 04/12/2017 [facility] CHEM PANEL Chloride Lvl 102 meq/L 95 - 109 04/12/2017 [facility] CHEM PANEL Calcium Lvl 7.8 mg/dL 8.5 - 10.5 04/12/2017 [facility] CHEM PANEL Sodium Lvl 137 meq/L 135 - 145 04/12/2017 [facility] CHEM PANEL Creatinine Lvl 1.40 mg/dL 0.50 - 1.40 04/12/2017 [facility] CHEM PANEL Potassium Lvl 4.9 meq/L 3.5 - 5.1 04/12/2017 [facility] CHEM PANEL BUN 25 mg/dL 7 - 22 04/12/2017 [facility] CHEM PANEL Glucose Lvl 116 mg/dL 70 - 99 04/12/2017 [facility] HEMATOLOGY Basophils 0.3 % 0.0 - 1.0 04/12/2017 [facility] HEMATOLOGY Segs-Bands # 3.5 K/CMM 1.5 - 8.1 04/12/2017 [facility] HEMATOLOGY Eosinophils 0.1 % 0.0 - 4.0 04/12/2017 [facility] HEMATOLOGY Monocytes # 0.5 K/CMM 0.0 - 0.8 04/12/2017 [facility] HEMATOLOGY Lymphocytes # 1.3 K/CMM 1.0 - 5.5 04/12/2017 [facility] HEMATOLOGY RBC Morph Normal (04/12/17 8:43 AM) 04/12/2017 [facility] HEMATOLOGY Segs 64.9 % 45.0 - 75.0 04/12/2017 [facility] HEMATOLOGY Plt Morph Normal (04/12/17 8:43 AM) 04/12/2017 [facility] Monocytes 9.9 % 2.0 - 12.0 04/12/2017 [facility] HEMATOLOGY Lymphocytes 24.8 % 20.0 - 40.0 04/12/2017 [facility] HEMATOLOGY PTT 34.6 s 22.9 - 35.8 04/12/2017 [facility] HEMATOLOGY PT 14.5 s 12.0 - 14.7 04/12/2017 [facility] HEMATOLOGY INR 1.11 0.85 - 1.17 04/12/2017 [facility] HEMATOLOGY MPV 8.8 fL 7.4 - 10.4 04/12/2017 [facility] HEMATOLOGY MCV 86.6 fL 80.0 - 94.0 04/12/2017 [facility] HEMATOLOGY RBC 2.82 M/CMM 4.70 - 6.10 04/12/2017 [facility] HEMATOLOGY Platelet 108 K/CMM 133 - 450 04/12/2017 [facility] HEMATOLOGY MCH 29.1 pg 27.0 - 31.0 04/12/2017 [facility] Hct 24.4 % 42.0 - 54.0 04/12/2017 [facility] Hgb 8.2 g/dL 14.0 - 18.0 04/12/2017 [facility] MCHC 33.6 g/dL 32.0 - 36.0 04/12/2017 [facility] RDW 16.2 % 11.5 - 14.5 04/12/2017 [facility] WBC 5.4 K/CMM 3.7 - 10.4 04/12/2017 [facility] LIPIDS Chol 108 mg/dL <=199 mg/dL 04/12/2017 [facility] LIPIDS CHD Risk 5.40 4.00 - 7.30 04/12/2017 [facility] LIPIDS HDL 20 mg/dL >=61 mg/dL 04/12/2017 [facility] LIPIDS Trig 133 mg/dL <=149 mg/dL 04/12/2017 [facility] ED Abdomen/Pelvis IV contrast only CT ED Abdomen/Pelvis IV contrast only CT Patient Name: LIZ ROLLE : 1930; Age: 86 years Male MR: [id number] Study: ED Abdomen/Pelvis IV contrast only CT 04/12/2017 9:36 AM CDT Clinical Indication: 100cc omni CT DLP 1860.55 mGy-cm CJ - c/f diverticulitis, midline chest pain at 0630 this morning. took 1 nitro and improved. pt states nausea and diarrhea last night, no sob, dizziness, fever or chills. COMPARISON: 04/12/2017. Technique: Multi-detector CT imaging of the abdomen and pelvis is performed with contrast. Coronal and sagittal reconstructions were obtained. CT ABDOMEN AND PELVIS WITH CONTRAST: LUNG BASES: Bilateral lower lobe infiltrates. Bilateral pleural effusions greater on the left. Cardiomegaly with coronary artery calcifications. ABDOMEN: No free air. Small hiatal hernia. Left flank subcutaneous edema. LIVER: Multiple low-density foci in the left lobe of the liver measuring up to 8 mm. BILIARY TREE: Normal. GALLBLADDER: Normal. PANCREAS: Normal. SPLEEN: The spleen measures 16.3 x 8.4 x 22.3 cm. Subcapsular hematoma involves the majority of the lateral splenic surface. Segmental hypodensity involves the mid and inferior spleen. 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 ADRENALS: Normal. KIDNEYS: No stones. No hydronephrosis. Low-density left renal lesion measures 11.1 Hounsfield units, 2.3 cm. PELVIS: No pelvic mass. The urinary bladder is normal. Hemorrhage extends into the lower pelvis. Small bilateral fat-containing inguinal hernias. BOWEL: No small bowel obstruction. Extensive sigmoid diverticulosis with surrounding fluid. PERITONEUM: Hemoperitoneum. RETROPERITONEUM: The aorta is normal. There is no pathologic lymphadenopathy. MUSCULOSKELETAL: Thoracic and lumbar spurring. IMPRESSION: 1. Splenic injury, grade 4 with hemoperitoneum and hemorrhage extending to the lower pelvis. Blush of contrast consistent with active bleeding. 2. Bilateral lower lobe infiltrates and effusions. 3. Cardiomegaly and coronary artery calcifications. 4. Multiple low-density hepatic lesions presumably cysts. This can be confirmed with a nonemergent ultrasound. 5. Small hiatal hernia. 6. Extensive sigmoid diverticulosis. These findings are communicated to Tejas Cristobal MD at 04/12/2017 10:59 AM CDT. SL: [id number] 04/12/2017 - - Read by: Richard Osorio MD Dictated Date/time: 04/12/17 10:55 Electronically Signed by: Richard Osorio MD 04/12/17 11:35 FINAL REPORT [facility] Chest 1view DX Chest 1view DX Patient Name: LIZ ROLLE : 1930; Age: 86 years y/o Male MR: [id number] * CHEST, portable, 1 view HISTORY: Chest and neck pain. COMPARISON: 03/23/2017. IMPRESSION: 1. There is mild left basilar atelectasis and possibly minimal left pleural effusion. The lungs are otherwise clear. Note is made of a small calcified granuloma in the right upper lobe. 2. The heart is normal in size. There is no evidence of failure. 3. The regional skeleton is unremarkable. SL: [id number] 04/12/2017 - - Read by: Buster Delaney MD Dictated Date/time: 04/12/17 08:53 Electronically Signed by: Buster Delaney MD 04/12/17 08:54 FINAL REPORT [facility] RAPID Grp A Strep Scr Positive *ABN* (03/23/17 12:36 PM) Negative 03/23/2017 [facility] URINE AND STOOL UA Urobilinogen <=1.0 mg/dL 0.1 - 1.0 03/23/2017 [facility] URINE AND STOOL UA Color Ltyellow 03/23/2017 [facility] URINE AND STOOL UA Sq Epi None Seen 03/23/2017 [facility] URINE AND STOOL UA WBC null 0 - 5 03/23/2017 [facility] URINE AND STOOL UA Leuk Est Negative (03/23/17 11:43 AM) Negative 03/23/2017 [facility] URINE AND STOOL UA RBC null 0 - 2 03/23/2017 [facility] URINE AND STOOL UA Spec Grav 1.005 <=1.030 03/23/2017 [facility] URINE AND STOOL UA Turbidity Clear (03/23/17 11:43 AM) Clear 03/23/2017 [facility] URINE AND STOOL UA Bili Negative *NA* (03/23/17 11:43 AM) Negative 03/23/2017 [facility] URINE AND STOOL UA Nitrite Negative (03/23/17 11:43 AM) Negative 03/23/2017 [facility] URINE AND STOOL UA Ketones Negative mg/dL Negative mg/dL 03/23/2017 [facility] URINE AND STOOL UA Blood Negative (03/23/17 11:43 AM) Negative 03/23/2017 [facility] URINE AND STOOL UA Glucose Negative mg/dL Negative mg/dL 03/23/2017 [facility] URINE AND STOOL UA pH 6.0 5.0 - 8.0 03/23/2017 [facility] URINE AND STOOL UA Protein Negative mg/dL Negative mg/dL 03/23/2017 [facility] CARDIAC ENZYMES Total CK 45 unit/L 12 - 191 03/23/2017 [facility] CARDIAC ENZYMES CK MB 0.7 ng/mL 0.5 - 3.6 03/23/2017 [facility] CARDIAC ENZYMES Troponin-I 0.02 ng/mL 0.00 - 0.40 03/23/2017 [facility] CARDIAC ENZYMES CK MB Index 1.6 0.0 - 2.5 03/23/2017 [facility] CHEM PANEL B/C Ratio 14 6 - 25 03/23/2017 [facility] CHEM PANEL Globulin 3.4 g/dL 2.7 - 4.2 03/23/2017 [facility] CHEM PANEL A/G Ratio 0.8 0.7 - 1.6 03/23/2017 [facility] CHEM PANEL AGAP 11.0 meq/L 10.0 - 20.0 03/23/2017 [facility] CHEM PANEL eGFR 68 mL/min/1.73m2 03/23/2017 Result Comment: The eGFR is calculated using the [...] from the National Kidney Disease Education Program (NKDEP) which additionally recommends that when the eGFR is used in patients with extremes of body mass index for purposes of drug dosing, the eGFR should be multiplied by the estimated BMI. [facility] CHEM PANEL Calcium Lvl 8.1 mg/dL 8.5 - 10.5 03/23/2017 [facility] CHEM PANEL CO2 26 meq/L 24 - 32 03/23/2017 [facility] CHEM PANEL Chloride Lvl 105 meq/L 95 - 109 03/23/2017 [facility] CHEM PANEL Sodium Lvl 138 meq/L 135 - 145 03/23/2017 [facility] CHEM PANEL Potassium Lvl 4.0 meq/L 3.5 - 5.1 03/23/2017 [facility] CHEM PANEL Creatinine Lvl 1.00 mg/dL 0.50 - 1.40 03/23/2017 [facility] CHEM PANEL Glucose Lvl 110 mg/dL 70 - 99 03/23/2017 [facility] CHEM PANEL BUN 14 mg/dL 7 - 22 03/23/2017 [facility] CHEM PANEL Alk Phos 67 unit/L 39 - 136 03/23/2017 [facility] CHEM PANEL Bili Total 0.6 mg/dL 0.2 - 1.3 03/23/2017 [facility] CHEM PANEL AST 13 unit/L 0 - 37 03/23/2017 [facility] CHEM PANEL Albumin Lvl 2.7 g/dL 3.5 - 5.0 03/23/2017 [facility] CHEM PANEL ALT 19 unit/L 0 - 65 03/23/2017 [facility] CHEM PANEL Total Protein 6.1 g/dL 6.4 - 8.4 03/23/2017 [facility] CHEM PANEL Procalcitonin Lvl <0.05 ng/mL 0.00 - 0.10 03/23/2017 [facility] CHEM PANEL Lactic Acid Lvl 1.2 mMol/L 0.5 - 2.2 03/23/2017 [facility] HEMATOLOGY WBC 12.9 K/CMM 3.7 - 10.4 03/23/2017 [facility] HEMATOLOGY MPV 7.4 fL 7.4 - 10.4 03/23/2017 [facility] Platelet 101 K/CMM 133 - 450 03/23/2017 [facility] Hgb 13.1 g/dL 14.0 - 18.0 03/23/2017 [facility] RBC 4.43 M/CMM 4.70 - 6.10 03/23/2017 [facility] RDW 15.6 % 11.5 - 14.5 03/23/2017 [facility] MCHC 33.3 g/dL 32.0 - 36.0 03/23/2017 [facility] MCH 29.5 pg 27.0 - 31.0 03/23/2017 [facility] MCV 88.6 fL 80.0 - 94.0 03/23/2017 [facility] Hct 39.3 % 42.0 - 54.0 03/23/2017 [facility] PTT 32.6 s 22.9 - 35.8 03/23/2017 [facility] PT 14.1 s 12.0 - 14.7 03/23/2017 [facility] INR 1.07 0.85 - 1.17 03/23/2017 [facility] Plt Morph Normal (03/23/17 11:17 AM) 03/23/2017 [facility] Monocytes # 0.4 K/CMM 0.0 - 0.8 03/23/2017 [facility] Lymphocytes # 8.4 K/CMM 1.0 - 5.5 03/23/2017 [facility] Atypical Lymphs 53.0 % <=0.0 % 03/23/2017 [facility] Monocytes 3.0 % 2.0 - 12.0 03/23/2017 [facility] RBC Morph Normal (03/23/17 11:17 AM) 03/23/2017 [facility] Segs-Bands # 4.1 K/CMM 1.5 - 8.1 03/23/2017 [facility] Lymphocytes 12.0 % 20.0 - 40.0 03/23/2017 [facility] HEMATOLOGY Bands 1.0 % 0.0 - 11.0 03/23/2017 [facility] HEMATOLOGY Segs 31.0 % 45.0 - 75.0 03/23/2017 [facility] VIRAL - SEROLOGY Influ B Negative (03/23/17 11:17 AM) Negative 03/23/2017 [facility] VIRAL - SEROLOGY Influ A Negative (03/23/17 11:17 AM) Negative 03/23/2017 [facility] Brain wo contrast CT Brain wo contrast CT Patient Name: LIZ ROLLE : 1930; Age: 86 years Male MR: [id number] Study: Brain wo contrast CT 03/23/2017 11:20 AM CDT Clinical Indication: fever, ams started last night, cough, sore throat - CT DLP dose 981.84 mGycm. COMPARISON: None TECHNIQUE: CT images were obtained from the foramen magnum to the vertex without the use of intravenous contrast on a multidetector CT. Coronal and sagittal reconstructions were obtained. FINDINGS: BRAIN PARENCHYMA: There is generalized brain parenchymal atrophy related to the patient's age. Nonspecific periventricular white matter disease changes are noted. Atherosclerotic calcifications are present within the carotid siphons and distal vertebral arteries. There are no focal mass lesions on this noncontrast head CT. There is no mass effect, midline shift or edema. There are no intra-axial or extra-axial fluid collections. There is no intraventricular or intraparenchymal hemorrhage. There is no noncontrast CT evidence of a subacute stroke. The pineal, sellar, brainstem, cerebellum and skull base regions appear normal. VENTRICLES: The lateral ventricles, third and fourth ventricles appear normal. The basilar cisterns are normal. ORBITS, MASTOIDS AND PARANASAL SINUSES: The visualized orbits are normal. Air- fluid level in the right maxillary sinus. Left maxillary sinus mucosal thickening, moderate ethmoid sinus mucosal thickening. Mild frontal sinus mucosal thickening. The mastoid air cells are clear. SKULL: There are no calvarial abnormalities seen. If there is further concern for intracranial pathology or acute stroke, MRI of the brain may be performed for complete assessment. IMPRESSION: 1. Chronic age-related and small vessel ischemic changes without mass, hemorrhage or subacute stroke. 2. Sinus disease as described above likely secondary to sinusitis. Without a trauma history, facial bone injury is considered less likely. SL: [id number] 03/23/2017 - - Read by: Richard Osorio MD Dictated Date/time: 03/23/17 12:16 Electronically Signed by: Richard Osorio MD 03/23/17 12:19 FINAL REPORT [facility] Chest 1view DX Chest 1view DX Study: Chest 1view DX Clinical Indication: Cough and low grade fever for a week - Cough and low grade fever for a week Comparison: Chest x-ray from 03/21/2005 FINDINGS: The cardiac silhouette is normal in size. The lungs are clear and without consolidation or congestion. No pleural effusion or pneumothorax is seen. The osseous structures are unremarkable. IMPRESSION: No acute cardiopulmonary disease. SL: [id number] 03/23/2017 - - Read by: Roman Manjarrez MD Dictated Date/time: 03/23/17 11:52 Electronically Signed by: Roman Manjarrez MD 03/23/17 11:52 FINAL REPORT [facility] Vital Signs Vital Sign Value Date Comments Source Temperature Oral (F) 97.5 F 04/15/2017 [facility] Heart Rate 80 04/15/2017 [facility] Respitory Rate 20 04/15/2017 [facility] Systolic (mm Hg) 103 04/15/2017 [facility] Diastolic (mm Hg) 63 04/15/2017 [facility] Systolic (mm Hg) 128 04/15/2017 [facility] Diastolic (mm Hg) 69 04/15/2017 [facility] Respitory Rate 18 04/15/2017 [facility] Temperature Oral (F) 97.9 F 04/15/2017 [facility] Heart Rate 96 04/15/2017 [facility] Respitory Rate 20 04/15/2017 [facility] Systolic (mm Hg) 130 04/15/2017 [facility] Diastolic (mm Hg) 70 04/15/2017 [facility] Temperature Oral (F) 97.5 F 04/15/2017 [facility] Heart Rate 91 04/15/2017 [facility] Weight 72.2 04/12/2017 [facility] Weight 72.727 04/12/2017 [facility] BMI Calculated 23.01 04/12/2017 [facility] Height 177.8 cm 04/12/2017 [facility] Temperature Oral (F) 97.8 F 04/12/2017 [facility] Respitory Rate 22 04/12/2017 [facility] Systolic (mm Hg) 103 04/12/2017 [facility] Diastolic (mm Hg) 50 04/12/2017 [facility] Temperature Oral (F) 98 F 04/12/2017 [facility] Systolic (mm Hg) 116 04/12/2017 [facility] Diastolic (mm Hg) 55 04/12/2017 [facility] Respitory Rate 22 04/12/2017 [facility] Respitory Rate 25 04/12/2017 [facility] Systolic (mm Hg) 103 04/12/2017 [facility] Diastolic (mm Hg) 50 04/12/2017 [facility] Height 177.8 cm 04/12/2017 [facility] Weight 72.727 04/12/2017 [facility] BMI Calculated 23.01 04/12/2017 [facility] Heart Rate 98 04/12/2017 [facility] Temperature Oral (F) 98.5 F 04/12/2017 [facility] Systolic (mm Hg) 136 03/23/2017 [facility] Diastolic (mm Hg) 64 03/23/2017 [facility] Temperature Oral (F) 98.3 F 03/23/2017 [facility] Respitory Rate 21 03/23/2017 [facility] Systolic (mm Hg) 125 03/23/2017 [facility] Diastolic (mm Hg) 45 03/23/2017 [facility] Respitory Rate 18 03/23/2017 [facility] Respitory Rate 19 03/23/2017 [facility] Temperature Oral (F) 98.4 F 03/23/2017 [facility] Weight 72.727 03/23/2017 [facility] BMI Calculated 23.01 03/23/2017 [facility] Height 177.8 cm 03/23/2017 [facility] Systolic (mm Hg) 114 03/23/2017 [facility] Diastolic (mm Hg) 54 03/23/2017 [facility] Temperature Oral (F) 98.5 F 03/23/2017 [facility] Heart Rate 75 03/23/2017 [facility] Encounters Location Location Details Encounter Type Encounter Number Reason For Visit Attending Provider ADM Date DC Date Status Source [facility] Emergency [id number] Felisha Jaramillo 03/23/2017 03/23/2017 [facility] Inpatient [id number] Conrad Wesley 04/12/2017 04/12/2017 [facility] Inpatient [id number] Tre Moore 04/12/2017 04/16/2017 [facility] Procedures Procedure Code Date Perfomer Comments Source Appendectomy [id number] [facility] Cholecystectomy [id number] [facility] Appendectomy [id number] [facility] Cholecystectomy [id number] [facility]
--- OUTSIDE RECORDS SUMMARY | 2018-12-23 05:58 | XMS REPORT | Summary of Care ---
Author Author [facility] Organization [facility] Address Unknown Phone Unavailable Encounter AISHA Gu(OCTAVIA) [id number] Date(s): 03/23/17 - 03/23/17 [facility] [address] [place] [address]- [phone] Discharge Diagnosis: Strep pharyngitis Discharge Diagnosis: Sinusitis Discharge Disposition: Home or Self Care Attending Physician: Felisha Jaramillo MD Vital Signs 1 2 3 Most recent to oldest [Reference Range]: 177.8 cm (03/23/17 11:08 AM) Height 98.3 DegF (03/23/17 2:56 PM) 98.4 DegF (03/23/17 12:48 PM) 98.5 DegF (03/23/17 11:08 AM) Temperature Oral [96.4-99.1 DegF] 136/64 mmHg (03/23/17 2:56 PM) 125/45 mmHg (03/23/17 1:33 PM) 114/54 mmHg (03/23/17 11:08 AM) Blood Pressure [90-140/60-90 mmHg] 21 BRMIN *HI* (03/23/17 2:56 PM) 18 BRMIN (03/23/17 1:33 PM) 19 BRMIN (03/23/17 12:48 PM) Respiratory Rate [14-20 BRMIN] 75 bpm (03/23/17 11:08 AM) Peripheral Pulse Rate [60-100 bpm] 72.727 kg (03/23/17 11:08 AM) Weight 23.01 m2 (03/23/17 11:08 AM) Body Mass Index Problem List Condition Effective [...] on 06/23/15. Originally documented as SULFA. Medications Augmentin 875 mg oral tablet 875 mg=1 tab, PO, Q12H, X 10 day, # 20 tab, 0 Refill(s) Start Date: 03/23/17 Stop Date: 04/02/17 Status: Ordered Saline Flush 0.9% 10 mL, Route: IVP, Drug Form: INJ, Dosing Weight 72.727, kg, PRN, PRN Line Flush , Start date: 03/23/17 11:16:00 CDT, Duration: 30 day, Stop date: 04/22/17 11:15 :00 CDT Notes: preservative free. Start Date: 03/23/17 Stop Date: 03/23/17 Status: Discontinued Sodium Chloride 0.9% IV (Sodium Chloride 0.9% (Bolus) IV) 1,500 mL, 2,000 ml/hr, Route: IV, ONCE, Priority: STAT, Dosing Weight 72.727 kg, Start date: 03/23/17 11:16:00 CDT, Duration: 1 doses or times, Stop date: 03/23 11:16:00 CDT Start Date: 03/23/17 Stop Date: 03/23/17 Status: Completed Results ELECTROLYTES Most recent to 1 oldest [Reference Range]: Sodium Lvl [135-145 138 mEq/L mEq/L] (03/23/17 11:17 AM) Potassium Lvl 4.0 mEq/L [3.5-5.1 mEq/L] (03/23/17 11:17 AM) Chloride Lvl [95-109 105 mEq/L mEq/L] (03/23/17 11: AM) CO2 [24-32 mEq/L] 26 mEq/L (03/23/17 AM) AGAP [10.0-20.0 11.0 mEq/L mEq/L] (03/23/17 AM) CHEM PANEL Most recent to 1 oldest [Reference Range]: Creatinine Lvl 1.00 mg/dL [0.50-1.40 mg/dL] (03/23/17: AM) eGFR 68 mL/min/1.73m2 1 *NA* (03/23/17 AM) BUN [7-22 mg/dL] 14 mg/dL (03/23/17 AM) B/C Ratio [6-25] 14 (03/23/17 AM) Glucose Lvl [70-99 110 mg/dL mg/dL] *HI* (03/23/17 AM) Total Protein 6.1 g/dL [6.4-8.4 g/dL] *LOW* (03/23/17 AM) Albumin Lvl [3.5-5.0 2.7 g/dL g/dL] *LOW* (03/23/17 AM) Globulin [2.7-4.2 3.4 g/dL g/dL] (03/23/17 AM) A/G Ratio [0.7-1.6] 0.8 (03/23/17: AM) Calcium Lvl 8.1 mg/dL [8.5-10.5 mg/dL] *LOW* (03/23/17 AM) ALT [0-65 unit/L] 19 unit/L (03/23/17 AM) AST [0-37 unit/L] 13 unit/L (03/23/17 AM) Alk Phos [39-136 67 unit/L unit/L] (03/23/17 AM) Bili Total [0.2-1.3 0.6 mg/dL mg/dL] (03/23/17 AM) Lactic Acid Lvl 1.2 mMol/L [0.5-2.2 mMol/L] (03/23/17 11:17 AM) Procalcitonin Lvl <0.05 ng/mL [0.00-0.10 ng/mL] (03/23/17 11:17 AM) 1Result Comment: The eGFR is calculated using [...] tiplied by the estimated BMI. CARDIAC ENZYMES Most recent to 1 oldest [Reference Range]: Total CK [12-191 45 unit/L unit/L] (03/23/17 11:17 AM) CK MB [0.5-3.6 0.7 ng/mL ng/mL] (03/23/17 11: AM) CK MB Index 1.6 [0.0-2.5] (03/23/17 11: AM) Troponin-I 0.02 ng/mL [0.00-0.40 ng/mL] (03/23/17 11: AM) URINE AND STOOL Most recent to 1 oldest [Reference Range]: UA Turbidity [Clear] Clear (03/23/17 11:43 AM) UA Color Ltyellow *NA* (03/23/17 11:43 AM) UA pH [5.0-8.0] 6.0 (03/23/17 11:43 AM) UA Spec Grav 1.005 [<=1.030] (03/23/17 11:43 AM) UA Glucose [Negative Negative mg/dL mg/dL] *NA* (03/23/17:43 AM) UA Blood [Negative] Negative (03/23/17:43 AM) UA Ketones [Negative Negative mg/dL mg/dL] *NA* (03/23/17 11:43 AM) UA Protein [Negative Negative mg/dL mg/dL] (03/23/17 11:43 AM) UA Urobilinogen <=1.0 mg/dL [0.1-1.0 mg/dL] *NA* (03/23/17 11:43 AM) UA Bili [Negative] Negative *NA* (03/23/17 11:43 AM) UA Leuk Est Negative [Negative] (03/23/17 11:43 AM) UA Nitrite Negative [Negative] (03/23/17 11:43 AM) UA WBC [0-5 /HPF] <1 /HPF (03/23/17 11:43 AM) UA RBC [0-2 /HPF] <1 /HPF (03/23/17 11:43 AM) UA Sq Epi None Seen *NA* (03/23/17 11:43 AM) HEMATOLOGY Most recent to 1 oldest [Reference Range]: WBC [3.7-10.4 K/CMM] 12.9 K/CMM *HI* (03/23/17 11:17 AM) RBC [4.70-6.10 4.43 M/CMM M/CMM] *LOW* (03/23/17 11:17 AM) Hgb [14.0-18.0 g/dL] 13.1 g/dL *LOW* (03/23/17 11:17 AM) Hct [42.0-54.0 %] 39.3 % *LOW* (03/23/17 11:17 AM) MCV [80.0-94.0 fL] 88.6 fL (03/23/17 11:17 AM) MCH [27.0-31.0 pg] 29.5 pg (03/23/17 11:17 AM) MCHC [32.0-36.0 33.3 g/dL g/dL] (03/23/17 11:17 AM) RDW [11.5-14.5 %] 15.6 % *HI* (03/23/17 11:17 AM) Platelet [133-450 101 K/CMM K/CMM] *LOW* (03/23/17 11:17 AM) MPV [7.4-10.4 fL] 7.4 fL (03/23/17 11:17 AM) Segs [45.0-75.0 %] 31.0 % *LOW* (03/23/1717 AM) Bands [0.0-11.0 %] 1.0 % (03/23/17:17 AM) Lymphocytes 12.0 % [20.0-40.0 %] *LOW* (03/23/17: AM) Atypical Lymphs 53.0 % [<=0.0 %] *HI* (03/23/17:17 AM) Monocytes [2.0-12.0 3.0 % %] (03/23/17 11:17 AM) Segs-Bands # 4.1 K/CMM [1.5-8.1 K/CMM] (03/23/17 11:17 AM) Lymphocytes # 8.4 K/CMM [1.0-5.5 K/CMM] *HI* (03/23/17: AM) Monocytes # [0.0-0.8 0.4 K/CMM K/CMM] (03/23/17 11:17 AM) RBC Morph Normal (03/23/17:17 AM) Plt Morph Normal (03/23/17: AM) PT [12.0-14.7 14.1 seconds seconds] (03/23/17 11:17 AM) INR [0.85-1.17] 1.07 (03/23/17 11:17 AM) PTT [22.9-35.8 32.6 seconds seconds] (03/23/17 11:17 AM) RAPID Most recent to 1 oldest [Reference Range]: Grp A Strep Scr Positive [Negative] *ABN* (03/23/17 12:36 PM) VIRAL - SEROLOGY Most recent to 1 oldest [Reference Range]: Influ A [Negative] Negative (03/23/17 11:17 AM) Influ B [Negative] Negative (03/23/17 11:17 AM) Immunizations Given and Recorded Vaccine Date Status Refusal Reason Hx influenza vaccine-unspecified1 09/10/13 Given influenza virus vaccine, inactivated2 09/10/13 Given 1Result Comment: done. Migrated from OBS ; Data migrated from [employer] on 12/27/2015. 2Result Comment: fluzone (>3 yrs.) [[id number]]. Migrated from OBS ; Data migrated from [employer] on 12/27/2015. Procedures Procedure Date Related Diagnosis Body Site Appendectomy Cholecystectomy Social History Social History Type Response Smoking Status Former smoker; Ready to change: No; Concerns about tobacco use in household: No; Exposure to Tobacco Smoke None; Cigarette Smoking Last 365 Days No; Reg Smoking Cessation Counseling No Assessment and Plan No data available for this section
--- OUTSIDE RECORDS SUMMARY | 2018-12-23 05:59 | XMS REPORT | Summary of Care ---
Author Author [facility] Organization [facility] Address Unknown Phone Unavailable Encounter HQ Brittanie(OCTAVIA) [id number] Date(s): 04/12/17 - 04/12/17 [facility] [address] [place] [address]- Discharge Disposition: Other Healthcare Facility Attending Physician: Conrad Wesley MD Admitting Physician: Conrad Wesley MD Vital Signs 1 2 3 Most recent to oldest [Reference Range]: 177.8 cm (04/12/17 8:17 AM) Height 97.8 DegF (04/12/17 1:08 PM) 98 DegF (04/12/17 11:16 AM) 98.5 DegF (04/12/17 8:17 AM) Temperature Oral [96.4-99.1 DegF] 103/50 mmHg (04/12/17 1:08 PM) 116/55 mmHg (04/12/17 11:16 AM) 103/50 mmHg (04/12/17 10:23 AM) Blood Pressure [90-140/60-90 mmHg] 22 BRMIN *HI* (04/12/17 1:08 PM) 22 BRMIN *HI* (04/12/17 11:16 AM) 25 BRMIN *HI* (04/12/17 10:40 AM) Respiratory Rate [14-20 BRMIN] 98 bpm (04/12/17 8:17 AM) Peripheral Pulse Rate [60-100 bpm] 72.727 kg (04/12/17 8:17 AM) Weight 23.01 m2 (04/12/17 8:17 AM) Body Mass Index Problem List Condition [...] on 06/23/15. Originally documented as SULFA. Medications RN please bring home med MESALAMINE to Pharmacy for label RN please bring home med MESALAMINE to Pharmacy for label, 1, Drug form: MISC , Route: MISC, TID, 04/12/17 15:00:00 CDT, Duration: 30 day, Stop date: 05/12/17 9:00:00 CDT Start Date: 04/12/17 Stop Date: 04/12/17 Status: Deleted acetaminophen 650 mg, 2 tab, Route: PO, Drug form: TAB, Q6H, Dosing Weight 72.727, kg, PRN Vivian n 1-3/Temp > 100.4 F, Start date: 04/12/17 10:15:00 CDT, Duration: 30 day, Stop date: 05/12/17 10:14:00 CDT Notes: Do not exceed 4 gm/day. (Same as: Tylenol) Start Date: 04/12/17 Stop Date: 04/12/17 Status: Discontinued acetaminophen-hydrocodone 325 mg-5 mg oral tablet 1 tab, Route: PO, Drug Form: TAB, Dosing Weight 72.727, kg, Q6H, PRN Pain Score 4-6, Start date: 04/12/17 10:15:00 CDT, Duration: 30 day, Stop date: 05/12/17 10 :14:00 CDT Notes: (Same as: [place] 325/5) Do not exceed 4gm/day of acetaminophen. Start Date: 04/12/17 Stop Date: 04/12/17 Status: Discontinued docusate 100 mg, 1 cap, Route: PO, Drug form: CAP, BID, Dosing Weight 72.727, kg, Start d ate: 04/12/17 17:00:00 CDT, Duration: 30 day, Stop date: 05/12/17 9:00:00 CDT Notes: (Same as: Colace) (Do Not Crush) Start Date: 04/12/17 Stop Date: 04/12/17 Status: Canceled gabapentin 300 mg oral capsule 300 mg=1 cap, PO, BID, 0 Refill(s) Start Date: 04/12/17 Status: Suspended gabapentin 300 mg oral capsule 300 mg, 1 cap, Route: PO, Drug form: CAP, BID, Dosing Weight 72.727, kg, Start d ate: 04/12/17 21:00:00 CDT, Duration: 30 day, Stop date: 05/12/17 9:00:00 CDT Notes: (Same as: Neurontin) Start Date: 04/12/17 Stop Date: 04/12/17 Status: Canceled Heparin - one time bolus for ACS 4,000 unit, 4 mL, Route: IVP, Drug form: INJ, ONCE, Dosing Weight 72.727, kg, Pr iority: STAT, Start date: 04/12/17 10:22:00 CDT, Stop date: 04/12/17 10:22:00 CD T Start Date: 04/12/17 Stop Date: 04/12/17 Status: Discontinued Heparin 30 unit/kg Bolus (Heparin Dosing Weight) Route: IVP, PRN, 2,200 unit, 2.2 mL, Drug form: INJ, PRN, Heparin Protocol, Star t date: 04/12/17 10:22:00 CDT Stop date: 05/12/17 10:21:00 CDT, 30 day Start Date: 04/12/17 Stop Date: 04/12/17 Status: Discontinued Heparin 60 unit/kg Bolus (Heparin Dosing Weight) Route: IVP, PRN, 4,400 unit, 4.4 mL, Drug form: INJ, PRN, Heparin Protocol, Star t date: 04/12/17 10:22:00 CDT Stop date: 05/12/17 10:21:00 CDT, 30 day Start Date: 04/12/17 Stop Date: 04/12/17 Status: Discontinued heparin additive 25,000 unit [12 unit/kg/hr] + Premix Diluent Dextrose 5% 500 mL 500 mL, Rate: 17.46 ml/hr, Infuse over: 28.6 hr, Route: IV, Dosing Weight 72.73 kg, Total Volume: 500 mL, Start date: 04/12/17 10:22:00 CDT, Duration: 30 day, S top date: 05/12/17 10:21:00 CDT Start Date: 04/12/17 Stop Date: 04/12/17 Status: Discontinued hydrALAZINE 10 mg, 0.5 mL, Route: IV, Drug form: INJ, RQ4H, Dosing Weight 72.727, kg, PRN Hy pertension, Start date: 04/12/17 10:46:00 CDT, Duration: 30 day, Stop date: 04/25 07/11 10:45:00 CDT Notes: (Same as: Apresoline)Push over 5 minutes Start Date: 04/12/17 Stop Date: 04/12/17 Status: Discontinued lisinopril 20 mg, 1 tab, Route: PO, Drug form: TAB, Daily, Dosing Weight 72.727, kg, Start date: 04/13/17 9:00:00 CDT, Duration: 30 day, Stop date: 05/12/17 9:00:00 CDT Notes: (Same as: Prinivil, Zestril) Start Date: 04/13/17 Stop Date: 04/12/17 Status: Canceled lisinopril 20 mg oral tablet 20 mg=1 tab, PO, Daily, 0 Refill(s) Start Date: 04/12/17 Status: Suspended mesalamine 375 mg, PO, QAM, 0 Refill(s) Start Date: 04/12/17 Status: Suspended mesalamine 375 mg, Route: PO, QAM, Dosing Weight 72.727, kg, Start date: 04/13/17 9:00:00 C DT, Duration: 30 day, Stop date: 05/12/17 9:00:00 CDT Start Date: 04/13/17 Stop Date: 04/12/17 Status: Canceled metoprolol tartrate 25 mg, 1 tab, Route: PO, Drug form: TAB, BID, Dosing Weight 72.727, kg, Start da te: 04/12/17 21:00:00 CDT, Duration: 30 day, Stop date: 05/12/17 9:00:00 CDT Notes: (Same as: Lopressor) Start Date: 04/12/17 Stop Date: 04/12/17 Status: Canceled metoprolol tartrate 25 mg, PO, BID, 0 Refill(s) Start Date: 04/12/17 Status: Suspended morphine Sulfate 4 mg, 1 mL, Route: IVP, Drug form: SOLN, ONCE, Dosing Weight 72.727, kg, Start d ate: 04/12/17 10:33:00 CDT, Stop date: 04/12/17 10:33:00 CDT Notes: (Same as:MORPhine Sulfate) Start Date: 04/12/17 Stop Date: 04/12/17 Status: Completed morphine Sulfate 2 mg, 1 mL, Route: IVP, Drug form: INJ, Q2H, Dosing Weight 72.727, kg, PRN Chest Pain, Start date: 04/12/17 10:46:00 CDT, Duration: 30 day, Stop date: 05/12/17 10:45:00 CDT Notes: (Same as:MORPhine Sulfate) Start Date: 04/12/17 Stop Date: 04/12/17 Status: Discontinued morphine Sulfate 2 mg, 1 mL, Route: IVP, Drug form: INJ, Q4H, Dosing Weight 72.727, kg, PRN Pain Score 7-10, Start date: 04/12/17 10:15:00 CDT, Duration: 30 day, Stop date: 04/25 07/11 10:14:00 CDT Notes: (Same as:MORPhine Sulfate) Start Date: 04/12/17 Stop Date: 04/12/17 Status: Discontinued Nitrostat 0.4 mg sublingual tablet 0.4 mg=1 tab, SL, Q5Min, 0 Refill(s) Start Date: 04/12/17 Status: Suspended Nitrostat 0.4 mg sublingual tablet 0.4 mg, 1 tab, Route: SL, Drug form: TAB, Q5Min, Dosing Weight 72.727, kg, PRN C hest Pain, Start date: 04/12/17 10:50:00 CDT, Duration: 30 day, Stop date: 05/12 10:49:00 CDT Notes: (Same as:Nitroquick, Nitrostat)"Do Not Crush" Sublingual tablet Start Date: 04/12/17 Stop Date: 04/12/17 Status: Discontinued ondansetron 4 mg, 2 mL, Route: IVP, Drug form: INJ, Q6H, Dosing Weight 72.727, kg, PRN Nause a & Vomiting, Start date: 04/12/17 10:15:00 CDT, Duration: 30 day, Stop date: 05/12/17 10:14:00 CDT Notes: (Same as: Duncan) MEDICATION WASTE Product Size: 4 mgProduct Was therese: ___ mg Start Date: 04/12/17 Stop Date: 04/12/17 Status: Discontinued Plavix 75 mg, 1 tab, Route: PO, Drug form: TAB, Daily, Dosing Weight 72.727, kg, Start date: 04/13/17 9:00:00 CDT, Duration: 30 day, Stop date: 05/12/17 9:00:00 CDT Notes: (Same As: Plavix) Start Date: 04/13/17 Stop Date: 04/12/17 Status: Canceled Plavix 75 mg oral tablet 75 mg=1 tab, PO, Daily, 0 Refill(s) Start Date: 04/12/17 Status: Suspended Sodium Chloride 0.9% (Bolus) IV 500 mL, 500 ml/hr, Infuse Over: 1 hr, Route: IV, 500, Drug form: INJ, ONCE, Prio rity: STAT, Dosing Weight 72.727 kg, Start date: 04/12/17 10:33:00 CDT, Duration : 1 doses or times, Stop date: 04/12/17 10:33:00 CDT Start Date: 04/12/17 Stop Date: 04/12/17 Status: Completed Sodium Chloride 0.9% (Bolus) IV 500 mL, 500 ml/hr, Infuse Over: 1 hr, Route: IV, 500, Drug form: INJ, ONCE, Prio rity: STAT, Dosing Weight 72.727 kg, Start date: 04/12/17 10:42:00 CDT, Duration : 1 doses or times, Stop date: 04/12/17 10:42:00 CDT Start Date: 04/12/17 Stop Date: 04/12/17 Status: Completed Sodium Chloride 0.9% (Bolus) IV 500 mL, 500 ml/hr, Infuse Over: 1 hr, Route: IV, 500, Drug form: INJ, ONCE, Prio rity: STAT, Dosing Weight 72.727 kg, Start date: 04/12/17 11:08:00 CDT, Duration : 1 doses or times, Stop date: 04/12/17 11:08:00 CDT Start Date: 04/12/17 Stop Date: 04/12/17 Status: Discontinued Zofran 4 mg, 2 mL, Route: IVP, Drug form: INJ, ONCE, Dosing Weight 72.727, kg, Start da te: 04/12/17 10:33:00 CDT, Stop date: 04/12/17 10:33:00 CDT Notes: (Same as: Zofran) MEDICATION WASTE Product Size: 4 mgProduct Was therese: ___ mg Start Date: 04/12/17 Stop Date: 04/12/17 Status: Completed Results BLOOD BANK RESULTS Most recent to 1 2 oldest [Reference Range]: ABO/Rh B NEG *Unknown* (04/12/17 11:57 AM) Antibody Scrn Negative (04/12/17 11:57 AM) RBC product Product available 1 (04/12/17 12:22 PM) 1Result Comment: 04/12/2017 14:10 [id number] 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 [facility] 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 ELECTROLYTES Most recent to 1 2 oldest [Reference Range]: Sodium Lvl [135-145 137 mEq/L mEq/L] (04/12/17 8:43 AM) Potassium Lvl 4.9 mEq/L [3.5-5.1 mEq/L] (04/12/17 8:43 AM) Chloride Lvl [95-109 102 mEq/L mEq/L] (04/12/17 8:43 AM) CO2 [24-32 mEq/L] 24 mEq/L (04/12/17 8:43 AM) AGAP [10.0-20.0 15.9 mEq/L mEq/L] (04/12/17 8:43 AM) CHEM PANEL Most recent to 1 2 oldest [Reference Range]: Creatinine Lvl 1.40 mg/dL [0.50-1.40 mg/dL] (04/12/17 8:43 AM) eGFR 45 mL/min/1.73m2 1 *NA* (04/12/17 8:43 AM) BUN [7-22 mg/dL] 25 mg/dL *HI* (04/12/17 8:43 AM) B/C Ratio [6-25] 18 (04/12/17 8:43 AM) Glucose Lvl [70-99 116 mg/dL mg/dL] *HI* (04/12/17 8:43 AM) Uric Acid [3.8-8.0 8.9 mg/dL mg/dL] *HI* (04/12/17 12:01 PM) Total Protein 5.6 g/dL [6.4-8.4 g/dL] *LOW* (04/12/17 8:43 AM) Albumin Lvl [3.5-5.0 2.5 g/dL g/dL] *LOW* (04/12/17 8:43 AM) Globulin [2.7-4.2 3.1 g/dL g/dL] (04/12/17 8:43 AM) A/G Ratio [0.7-1.6] 0.8 (04/12/17 8:43 AM) Calcium Lvl 7.8 mg/dL [8.5-10.5 mg/dL] *LOW* (04/12/17 8:43 AM) Phosphorus [2.5-4.5 3.6 mg/dL mg/dL] (04/12/17 12:01 PM) Magnesium Lvl 2.0 mg/dL [1.8-2.4 mg/dL] (04/12/17 12:01 PM) ALT [0-65 unit/L] 16 unit/L (04/12/17 8:43 AM) AST [0-37 unit/L] 44 unit/L *HI* (04/12/17 8:43 AM) Alk Phos [39-136 63 unit/L unit/L] (04/12/17 8:43 AM) Bili Total [0.2-1.3 0.6 mg/dL mg/dL] (04/12/17 8:43 AM) Amylase Lvl [25-115 37 unit/L unit/L] (04/12/17 12:01 PM) Vitamin D, 25-OH, 20.5 ng/mL Total [30.0-100.0 *LOW* ng/mL] (04/12/17 12:01 PM) 1Result Comment: The eGFR is calculated using [...] BMI. CARDIAC ENZYMES Most recent to 1 2 oldest [Reference Range]: Total CK [12-191 147 unit/L unit/L] (04/12/17 8:43 AM) CK MB [0.5-3.6 27.1 ng/mL ng/mL] *HI* (04/12/17 8:43 AM) CK MB Index 18.4 [0.0-2.5] *HI* (04/12/17 8:43 AM) Troponin-I 3.30 ng/mL 1 [0.00-0.40 ng/mL] *CRIT* (04/12/17 8:43 AM) BNP [<=100 pg/mL] 142 pg/mL *HI* (04/12/17 12:01 PM) 1Result Comment: Critical Result(s) called to Tisha Ruffin at 04/12/2017 09:21 by jaguar. Read back OK. LIPIDS Most recent to 1 2 oldest [Reference Range]: CHD Risk [4.00-7.30] 5.40 (04/12/17 8:43 AM) Chol [<=199 mg/dL] 108 mg/dL (04/12/17 8:43 AM) Trig [<=149 mg/dL] 133 mg/dL (04/12/17 8:43 AM) HDL [>=61 mg/dL] 20 mg/dL *LOW* (04/12/17 8:43 AM) LDL (Calculated) 61 mg/dL [<=99 mg/dL] (04/12/17 12:01 PM) VLDL 27 *NA* (04/12/17 12:01 PM) SPECIAL CHEMISTRY Most recent to 1 2 oldest [Reference Range]: Hgb A1C [<=5.6 %] 5.3 % (04/12/17 12:01 PM) URINE AND STOOL Most recent to 1 2 oldest [Reference Range]: Occult Bld Stl Negative [Negative] (04/12/17 10:08 AM) IMMUNOLOGY Most recent to 1 2 oldest [Reference Range]: Prealbumin 10.4 mg/dL [18.0-45.0 mg/dL] *LOW* (04/12/17 12:01 PM) Homocyst Tot 5.3 uMol/L [3.7-13.9 uMol/L] (04/12/17 12:01 PM) HEMATOLOGY Most recent to 1 2 oldest [Reference Range]: WBC [3.7-10.4 K/CMM] 4.5 K/CMM 5.4 K/CMM (04/12/17 12:01 PM) (04/12/17 8:43 AM) RBC [4.70-6.10 2.53 M/CMM 2.82 M/CMM M/CMM] *LOW* *LOW* (04/12/17 12:01 PM) (04/12/17 8:43 AM) Hgb [14.0-18.0 g/dL] 7.3 g/dL 8.2 g/dL *LOW* *LOW* (04/12/17 12:01 PM) (04/12/17 8:43 AM) Hct [42.0-54.0 %] 21.9 % 24.4 % *LOW* *LOW* (04/12/17 12:01 PM) (04/12/17 8:43 AM) MCV [80.0-94.0 fL] 86.3 fL 86.6 fL (04/12/17 12:01 PM) (04/12/17 8:43 AM) MCH [27.0-31.0 pg] 28.8 pg 29.1 pg (04/12/17 12:01 PM) (04/12/17 8:43 AM) MCHC [32.0-36.0 33.4 g/dL 33.6 g/dL g/dL] (04/12/17 12:01 PM) (04/12/17 8:43 AM) RDW [11.5-14.5 %] 16.3 % 16.2 % *HI* *HI* (04/12/17 12:01 PM) (04/12/17 8:43 AM) Platelet [133-450 94 K/CMM 108 K/CMM K/CMM] *LOW* *LOW* (04/12/17 12:01 PM) (04/12/17 8:43 AM) MPV [7.4-10.4 fL] 8.9 fL 8.8 fL (04/12/17 12:01 PM) (04/12/17 8:43 AM) Segs [45.0-75.0 %] 64.0 % 64.9 % (04/12/17 12:01 PM) (04/12/17 8:43 AM) Lymphocytes 23.2 % 24.8 % [20.0-40.0 %] (04/12/17 12:01 PM) (04/12/17 8:43 AM) Monocytes [2.0-12.0 12.5 % 9.9 % %] *HI* (04/12/17 8:43 AM) (04/12/17 12:01 PM) Eosinophils [0.0-4.0 0.1 % %] (04/12/17 8:43 AM) Basophils [0.0-1.0 0.3 % 0.3 % %] (04/12/17 12:01 PM) (04/12/17 8:43 AM) Segs-Bands # 2.9 K/CMM 3.5 K/CMM [1.5-8.1 K/CMM] (04/12/17 12:01 PM) (04/12/17 8:43 AM) Lymphocytes # 1.1 K/CMM 1.3 K/CMM [1.0-5.5 K/CMM] (04/12/17 12:01 PM) (04/12/17 8:43 AM) Monocytes # [0.0-0.8 0.6 K/CMM 0.5 K/CMM K/CMM] (04/12/17 12:01 PM) (04/12/17 8:43 AM) RBC Morph Normal (04/12/17 8:43 AM) Plt Morph Normal (04/12/17 8:43 AM) Sed Rate [0-15 44 mm/hr mm/hr] *HI* (04/12/17 12:01 PM) PT [12.0-14.7 14.5 seconds seconds] (04/12/17 8:43 AM) INR [0.85-1.17] 1.11 (04/12/17 8:43 AM) PTT [22.9-35.8 34.6 seconds seconds] (04/12/17 8:43 AM) Immunizations Given and Recorded Vaccine Date Status Refusal Reason Hx influenza vaccine-unspecified1 09/10/13 Given influenza virus vaccine, inactivated2 09/10/13 Given 1Result Comment: done. Migrated from OBS ; Data migrated from [employer] on 12/27/2015. 2Result Comment: fluzone (>3 yrs.) [[id number]]. Migrated from OBS ; Data migrated from [employer] on 12/27/2015. Procedures Procedure Date Related Diagnosis Body Site Appendectomy Cholecystectomy Social History Social History Type Response Smoking Status Former smoker; Ready to change: No; Concerns about tobacco use in household: No; Exposure to Tobacco Smoke None; Cigarette Smoking Last 365 Days No; Reg Smoking Cessation Counseling No Assessment and Plan Extracted from: Title: Clinical Document Author: Liz Calhoun Date: 04/12/17 DO Consultation [facility] Completed: Wednesday, APRIL 12, 2017, 12:06 by Liz Calhoun DO RM: ED01 - 02, [facility] L[place] LIZ [id number] (: 1930) M Attending: Conrad Wesley MDPhone: Service: Internal Medicine Reason for Admission: NSTEMI Working DRG: None Documented Code status: None Specified=FULL CODECurrent diet: Isolation: None Documented Allergies: sulfa drugs SUBJECTIVE 86 y/o present with cc of Chest pain; Dx with NSTEMI. He also c/o RLQ abd pain. CT A/P --> Grade IV Splenic Injury with Active Blush. Pt denies LUQ abdominal pain. Currently HD stable Per pt, spouse and daughter, there has been no fall / trauma to abdomen Please see full dictation. # [id number] OBJECTIVE VS: 116/55 BP. 100 P. 22 RR. 98% O2 sat 70 MAP. Gen: Patient is in NAD: Good Historian. Alert and Orientated x 4 HEENT: NC/AT; PERRL, H of H. Pale. CV: S1 S2 Pulm: Breath sounds clear bilaterally Abd: Sounds present and active; Soft; Non Tender, Non distended; No rebound, no rigidity. + Splenomegaly. Midline laparotomy scar c/w PSHx. : Deferred. Skin: No rashes, no signs of infection Ext: No deformities noted. Bilat pulses present upper and lower. Psyc: Normal Affect Neuro: No focal deficits Musk: No clubbing, cyanosis or edema 24hr Labs 04/12 1008 Occult Bld StlNegative 04/12 0843 Sodium Net233 Potassium Lvl4.9 Chloride Wwl240 CO224 AGAP15.9 Glucose Sli403 H Creatinine Lvl1.40 BUN25 H B/C Ratio18 Total Protein5.6 L Albumin Lvl2.5 L Globulin3.1 A/G Ratio0.8 Calcium Lvl7.8 L ALT16 AST44 H Alk Phos63 Bili Total0.6 eGFR45 Total CK147 CK MB27.1 H CK MB Index18.4 H Troponin-I3.30 C WBC5.4 RBC2.82 L Hgb8.2 L Hct24.4 L MCV86.6 MCH29.1 MCHC33.6 RDW16.2 H Ukbysaxh092 L MPV8.8 PT14.5 INR1.11 PTT34.6 Segs64.9 Monocytes9.9 Jpqekvfclep34.8 Eosinophils0.1 Basophils0.3 Segs-Bands #3.5 Lymphocytes #1.3 Monocytes #0.5 RBC MorphNormal Plt MorphNormal Moralez still necessary (Yes/No): Line still necessary (Yes/No): VitalsTmp(F)[id number] 04/12 11:[id number]/[id number] 2.0L/m 04/12 10:40----107-----25------ 04/12 10:34 98 2.0L/m 04/12 10:23----53787/[id number] 2.0L/m 04/12 08:1798.797682/856385 2.0L/m 24 Hr Tmax: 98.5F (36.94c) at 04/12 08:17Vital Signs are the last 5 in the past 48 hours. DateWt(kg)Wt(lb)Ht(cm)Ht(in)Method 04/12 (initial) 72.73 160.00Estimated 77.80 70.00Stated I&ORecordInOutBal 03/1924hr Tot 1000 0 1000 03/1824hr Tot 0 0 0 Medications (20) Active Scheduled Meds (7): 04/13/17 clopidogrel (Plavix) 75 mg PO Daily 04/12/17 docusate 100 mg PO BID 04/12/17 gabapentin (gabapentin 300 mg oral capsule) 300 mg PO BID 04/13/17 lisinopril 20 mg PO Daily 04/13/17 mesalamine 375 mg PO QAM 04/12/17 metoprolol (metoprolol tartrate) 25 mg PO BID 04/12/17 non-formulary (RN please bring home med MESALAMINE to Pharmacy for label) MISC TID Unscheduled Meds: None PRN Meds (7): 04/12/17 acetaminophen-hydrocodone (acetaminophen-hydrocodone 325 mg-5 mg oral tablet) 1 tab PO Q6H 04/12/17 acetaminophen 650 mg PO Q6H 04/12/17 hydrALAZINE 10 mg IV RQ4H 04/12/17 morphine Sulfate 2 mg IVP Q4H 04/12/17 morphine Sulfate 2 mg IVP Q2H 04/12/17 nitroglycerin (Nitrostat 0.4 mg sublingual tablet) 0.4 mg SL Q5Min 04/12/17 ondansetron 4 mg IVP Q6H One Time Meds (6): 04/12/17 (Completed) Sodium Chloride 0.9% IV (Sodium Chloride 0.9% (Bolus) IV) 500 mL IV ONCE 500 ml/hr 04/12/17 (Completed) Sodium Chloride 0.9% IV (Sodium Chloride 0.9% (Bolus) IV) 500 mL IV ONCE 500 ml/hr 04/12/17 (Discontinued) Sodium Chloride 0.9% IV (Sodium Chloride 0.9% (Bolus) IV) 500 mL IV ONCE 500 ml/hr 04/12/17 (Discontinued) heparin (Heparin - one time bolus for ACS) 4,000 unit IVP ONCE 04/12/17 (not done) morphine Sulfate 4 mg IVP ONCE 04/12/17 (not done) ondansetron (Zofran) 4 mg IVP ONCE Continuous Infusions: None ASSESSMENT & EXAM 1. Grade IV Slenic Injury 2. NSTMI 3. Acute Anemia 4. HTN 5. CAD. Pt on Plavix PLAN & TREATMENT Recommended Transfer to a Level 1 Trauma Center for Higher Acuity of care. I explained to family that pt will need: Surgeon. Finance Mgr. Director Human Services. Interventional Radiologist. Oncologist. Dr. Estrada of [facility] feels like this spleen is not amenable to Coil. I agreed with transfer to [facility] ED Dr. Cristobal currently working on that now. DIAGNOSES & PROBLEMS Ready for Discharge (Yes/No)? TEACHING ATTESTATION
--- NOTE | 2018-12-23 08:46 | Operative Report ---
DATE OF PROCEDURE: December 23, 2018 PROCEDURE: Colonoscopy. INDICATIONS FOR PROCEDURE 1. History of chronic ulcerative colitis for several years. 2. History of occult blood in the stool. DIFFERENTIAL DIAGNOSES 1. Rule out dysplasia. 2. Rule out colorectal neoplasm. 3. Rule out active colitis. 4. Rule out DALM. PROCEDURE: After informed written consent, the pediatric video Olympus colonoscope was introduced into the rectum and insufflation was with CO2. The scope was advanced all the way into the cecum and into the terminal ileum. The terminal ileum, ileocecal valve and cecum appeared to be normal. Random biopsies were obtained from the ascending and transverse colon to look for dysplasia. The hepatic flexure showed a 5-mm polyp, which was removed by cold snare. The mid-ascending colon showed a 5-mm polyp removed by cold snare. The splenic flexure showed a 6-mm polyp removed by cold snare. In the descending colon at 40 cm from the anal verge, there was a flat lesion very suggestive of DALM. This was biopsied in multiple areas, and Catalina ink tattoo was placed around the area of this polyp at 40 cm. Biopsies were also obtained from the region around this flat lesion at 38-40 cm to rule out any evidence of dysplasia. Next, biopsies were also obtained from the sigmoid colon and the rectum. The rectus did show evidence of active proctitis. Scattered numerous diverticulosis were also noted in the area of the sigmoid and distal descending colon. FINDINGS 1. Flat polyps removed by cold snare at the hepatic flexure, mid-ascending colon, splenic flexure. 2. Flat lesion in the area at 40 cm in the descending colon suggestive of neoplasm versus flat adenoma. This has been tattooed and biopsied. 3. Diverticulosis. 4. Active proctitis. RECOMMENDATIONS: Continue current medications. Reviewed the results of the biopsies and accordingly proceed. Further recommendations will be based on the patient's clinical course. The patient has been advised to follow up in the office in 3-4 weeks to discuss the results of the biopsies. Further recommendations will be based on the patient's clinical course. Job#: [id number] HI
[2018-12-23 09:00] VITALS: BP 166/80
== END | disposition home or self-care (01) ==
LOC: OR 05:54
PROVIDERS: ATTEND Internal Medicine Gastroenterology
DX: K51.90 Ulcerative colitis, unspecified, without complications (principal); Z95.5 Presence of coronary angioplasty implant and graft; D12.2 Benign neoplasm of ascending colon; D12.3 Benign neoplasm of transverse colon; D12.4 Benign neoplasm of descending colon; K57.30 Diverticulosis of large intestine without perforation or abscess without bleeding; K62.89 Other specified diseases of anus and rectum; I10 Essential (primary) hypertension; I25.2 Old myocardial infarction; I25.10 Atherosclerotic heart disease of native coronary artery without angina pectoris; I44.0 Atrioventricular block, first degree; M06.9 Rheumatoid arthritis, unspecified; Z88.2 Allergy status to sulfonamides; Z01.810 Encounter for preprocedural cardiovascular examination; Z01.812 Encounter for preprocedural laboratory examination; Z79.02 Long term (current) use of antithrombotics/antiplatelets; Z85.6 Personal history of leukemia; Z87.891 Personal history of nicotine dependence
CPT/HCPCS: 36415; 45380; 45381; 45385; 85025; 88305; 93005; J2001; J2704